=== PATIENT | female | born 1930 | race Asian ===

== ENCOUNTER 2016-11-21 16:52 | Inpatient (IN) | payer MEDICARE, MEDICAID ==
--- NOTE | 2016-11-21 17:01 | ED Physician Chart ---
Chief Complaint/HPI - Patient Information Date Seen:: 11/21/16 Time Seen:: 17:01 Chief Complaint:: cough History of Present Illness:: 86-year-old female history of COPD and dementia, brought in by EMS from [facility] facility with worsening, constant, nonproductive, cough 3 days. Has associated upper respiratory congestion. History limited as patient has underlying dementia History provided by EMS and EMS run sheet Allergies:: Allergies Allergy/AdvReac Type Severity Reaction Status Date / Time No Known Allergies Allergy Verified 07/30/16 21:04 Historian:: EMS Review:: Nurse's Note Reviewed, EMS run form Reviewed, Transfer documents Reviewed Review of Systems - Review of Systems Other: Complete system review otherwise unremarkable except as noted in HPI. Past Medical History - Past Medical History Past Medical History: HTN, Asthma/COPD, Dementia Family History: None Social History: Non Smoker, No Alcohol, No Drug Use, Care Facility Surgical History: Cholecystectomy Psychiatricy History: Dementia Medication: Reviewed Family Medical History - Family Member Mother History Unknown: Yes Father History Unknown: Yes Physical Exam - Physical Examination Other:: INITIAL VITAL SIGNS: Reviewed by me GENERAL: Alert and interactive. No acute distress HEAD: Head is normocephalic and atraumatic EYES: EOMI. . No scleral icterus. No conjunctival injection ENT: Moist mucous membranes. NECK: Supple. No masses. Full range of motion RESPIRATORY: No tachypnea. Prolonged expiratory phase bilaterally with slight wheezing on expiration. No rales or rhonchi. CV: Regular rate and rhythm. No murmurs, rubs, or gallops ABDOMEN: Soft, non-distended, non-tender. No guarding. No rebound. No masses. EXTREMITIES: No deformity. No cyanosis. No edema. SKIN: Warm and dry. No obvious rashes. NEUROLOGIC: Alert and oriented. Face is symmetric. Speech is normal. Moves all extremities equally. Motor and sensory distally intact. Labs/Radiology/EKG Results - Lab Results Results: Lab Results 11/21/16 11/21/16 11/21/16 Range/Units 17:22 17:22 17:22 WBC 8.3 (4.8-10.8) Th/cmm RBC 3.54 L (3.80-5.20) Mil/cmm Hgb 12.2 D (11.7-16.1) gm/dL Hct 34.2 L D (35.0-45.0) % MCV 96.8 (81-100) fl MCH 34.6 H (27.0-31.0) pg MCHC Differential 35.8 (28.0-36.0) pg RDW 12.9 (11.5-20.0) % Plt Count 245 (150-400) Th/cmm MPV 7.4 fl Neutrophils % 70.4 (40.0-80.0) % Lymphocytes % 16.1 L (20.0-50.0) % Monocytes % 12.5 H (2.0-10.0) % Eosinophils % 0.6 (0.0-5.0) % Basophils % 0.4 (0.0-2.0) % PT 9.2 L (9.5-11.5) SECONDS INR 0.93 (0.5-1.4) PTT (Actin FS) 26.1 (26.0-38.0) SECONDS Sodium 137 (136-145) mEq/L Potassium 3.9 (3.5-5.1) mEq/L Chloride 105 (98-107) mEq/L Carbon Dioxide 25.0 (21.0-31.0) mEq/L Anion Gap 10.9 (7.0-16.0) BUN 24 (7-25) mg/dL Creatinine 0.8 (0.6-1.2) mg/dL Est GFR ( Amer) TNP Est GFR (Non-Af Amer) TNP BUN/Creatinine Ratio 30.0 Glucose 104 (70-105) mg/dL Whole Bld Lactic Acid (0.60-2.00) mmol/L Calcium 9.1 (8.6-10.3) mg/dL Total Bilirubin 0.3 (0.3-1.0) mg/dL AST 20 (13-39) U/L ALT 16 (7-52) U/L Alkaline Phosphatase 98 (34-104) U/L Creatine Kinase 26 L (30-223) U/L Total Protein 7.7 (6.0-8.3) gm/dL Albumin 3.6 L (3.7-5.3) gm/dL Globulin 4.1 gm/dL Albumin/Globulin Ratio 0.9 L (1.0-1.8) 12/30/16 Range/Units 17:22 WBC (4.8-10.8) Th/cmm RBC (3.80-5.20) Mil/cmm Hgb (11.7-16.1) gm/dL Hct (35.0-45.0) % MCV (81-100) fl MCH (27.0-31.0) pg MCHC Differential (28.0-36.0) pg RDW (11.5-20.0) % Plt Count (150-400) Th/cmm MPV fl Neutrophils % (40.0-80.0) % Lymphocytes % (20.0-50.0) % Monocytes % (2.0-10.0) % Eosinophils % (0.0-5.0) % Basophils % (0.0-2.0) % PT (9.5-11.5) SECONDS INR (0.5-1.4) PTT (Actin FS) (26.0-38.0) SECONDS Sodium (136-145) mEq/L Potassium (3.5-5.1) mEq/L Chloride (98-107) mEq/L Carbon Dioxide (21.0-31.0) mEq/L Anion Gap (7.0-16.0) BUN (7-25) mg/dL Creatinine (0.6-1.2) mg/dL Est GFR ( Amer) Est GFR (Non-Af Amer) BUN/Creatinine Ratio Glucose (70-105) mg/dL Whole Bld Lactic Acid 0.88 (0.60-2.00) mmol/L Calcium (8.6-10.3) mg/dL Total Bilirubin (0.3-1.0) mg/dL AST (13-39) U/L ALT (7-52) U/L Alkaline Phosphatase (34-104) U/L Creatine Kinase (30-223) U/L Total Protein (6.0-8.3) gm/dL Albumin (3.7-5.3) gm/dL Globulin gm/dL Albumin/Globulin Ratio (1.0-1.8) - Radiology Results Results: Single AP VIEW Portable Chest X-ray was interpreted independently and contemporaneously by Lois Romero MD: No cardiomegaly Normal mediastinum No lung infiltrates No pneumothorax No soft tissue or bony abnormalities - EKG Interpretations Comments:: 12-lead EKG Interpretation by Lois Romero MD: Normal Sinus Rhythm with ventricular rate of 78 beats per minute Normal axis Normal intervals No acute ST or T wave changes. No obvious STEMI ED Septic Shock - . Is Septic Shock (SBP<90, OR Lactate>4 mmol\L) present?: No Reassessment (Disposition) - Reassessment Reassessment:: Patient appears to be having COPD exacerbation. Received IV Solu-Medrol and DuoNeb. Provided IV antibiotics. Spoke to Dr. Case who is covering for Dr. Sweet about the case. Given her advanced age and multiple comorbidities she will be admitted for further workup and treatment. Reassessment Condition:: Improved - Diagnosis Diagnosis:: COPD exacerbation Hypertension - Patient Disposition Discharge/Transfer:: Acute Care w/in this hosp Admitted to:: Med/Surg Admitting Medical Physician:: Marvin Case Time:: 19:40 Condition at Disposition:: Stable ED Discharge Plan - Patient Disposition Admit/Discharge/Transfer: Acute Care w/in this hosp
[2016-11-21] MEDS ORDERED: Albuterol/Ipratropium Neb 3 ML AERS HHN ONE ×2 (17:20→17:31)
[2016-11-21 17:41] LABS: % BASOPHILS 0.4 % (0.0-2.0); % EOSINOPHILS 0.6 % (0.0-5.0); % LYMPHOCYTES 16.1 % (20.0-50.0); % MONOCYTES 12.5 % (2.0-10.0); % NEUTROPHILS 70.4 % (40.0-80.0); MEAN CELL VOLUME 96.8 fl (81-100); MEAN CORPUSCULAR HEMOGLOBIN 34.6 pg (27.0-31.0); MEAN CORPUSCULAR HGB CONC 35.8 pg (28.0-36.0); MEAN PLATELET VOLUME 7.4 fl; PLATELET COUNT 245 Th/cmm (150-400); RED BLOOD COUNT 3.54 Mil/cmm (3.80-5.20); RED CELL DISTRIBUTION WIDTH 12.9 % (11.5-20.0); WHITE BLOOD COUNT 8.3 Th/cmm (4.8-10.8)
[2016-11-21 17:46] LABS: HEMATOCRIT 34.2 % (35.0-45.0); HEMOGLOBIN 12.2 gm/dL (11.7-16.1)
[2016-11-21 18:02] LABS: ALB/GLOB RATIO 0.9 (1.0-1.8); ALKALINE PHOSPHATASE 98 U/L (34-104); ANION GAP 10.9 (7.0-16.0); BILIRUBIN,TOTAL 0.3 mg/dL (0.3-1.0); BUN - UREA NITROGEN 24 mg/dL (7-25); CALCIUM SERUM 9.1 mg/dL (8.6-10.3); CHLORIDE 105 mEq/L (98-107); CREATININE - SERUM 0.8 mg/dL (0.6-1.2); GLUCOSE 104 mg/dL (70-105); POTASSIUM SERUM 3.9 mEq/L (3.5-5.1); SGOT 20 U/L (13-39); SGPT/ALT 16 U/L (7-52); SODIUM SERUM 137 mEq/L (136-145)
[2016-11-21 18:14] LABS: INR 0.93 (0.5-1.4); PROTHROMBIN TIME (TEST) 9.2 SECONDS (9.5-11.5)
[2016-11-21] MEDS ORDERED: cefTRIAXone 1 GM in Sodium Chloride 0.9% 50 ML IV ONE (19:16)
[2016-11-21] MEDS ORDERED: Piperacillin Sodium/Tazobact 3.375 gm Vial IV ONE (19:36)
[2016-11-21] MEDS ORDERED: Magnesium Hydroxide (MOM) 30 mL UDC PO PRN ×2 (19:58→21:08)
[2016-11-21] MEDS ORDERED: Morphine Sulfate 2 mg/mL 1mL Syr IVP PRN ×2 (19:58→21:08)
[2016-11-21] MEDS ORDERED: Hydrocodone/APAP 5mg/325mg Tab PO PRN ×2 (19:58→21:08)
[2016-11-21] MEDS ORDERED: Fleet Enema 135 mL RC PRN ×2 (19:58→21:08)
[2016-11-21] MEDS ORDERED: Non-Formulary Item 1 EA (Olopatadine Hcl [Pataday] 1 DROP) EACH EYE PRN ×2 (19:58→21:08)
[2016-11-21] MEDS ORDERED: Albuterol Nebulizer 2.5mg/3mL HHN PRN ×2 (19:58→21:08)
[2016-11-21] MEDS ORDERED: Albuterol Nebulizer 2.5mg/3mL HHN SCH (23:00)
[2016-11-22] MEDS: Guaifenesin DM 10 ML UDC PO PRN (01:04)
[2016-11-22] MEDS ORDERED: methylPREDNISolone SS 40 mg Vial IVP SCH (02:00)
[2016-11-22] MEDS: methylPREDNISolone SS 40 mg Vial IVP SCH ×4 (02:46→21:07)
[2016-11-22] MEDS: Albuterol Nebulizer 2.5mg/3mL HHN SCH ×5 (07:17→22:58)
--- NOTE | 2016-11-22 07:44 | History & Physical ---
Dictating on behalf of Dr. Sweet. CHIEF COMPLAINT: Cough. HISTORY OF PRESENT ILLNESS: The patient is an 86-year-old female with the history of COPD and dementia, brought in by EMS from [facility] for worsening, constant nonproductive cough for last 3 days. The patient also has some respiratory congestion. On initial evaluation, the patient was afebrile and WBC count was 8300. Chest x-ray showed no active disease. The patient was diagnosed to have COPD exacerbation. The patient was given Solu-Medrol and DuoNeb. The patient also has received 1 dose of IV antibiotic in the ER. PAST MEDICAL HISTORY: Include COPD and dementia, hypertension. SOCIAL HISTORY: The patient lives at care facility. No history of smoking, alcohol or drug use. PAST SURGICAL HISTORY: Cholecystectomy. PSYCHIATRIC HISTORY: Dementia. FAMILY HISTORY: Noncontributory. REVIEW OF SYSTEMS: CONSTITUTIONAL: The patient is poor historian. The patient has no fever, no chills. HEENT: The patient has no diplopia, no photophobia, no sore throat. RESPIRATORY: The patient has cough with mild congestion for last 3 days. CARDIOVASCULAR: No chest pain or palpitation. GASTROINTESTINAL: No nausea, no vomiting, no diarrhea, no constipation. GENITOURINARY: No dysuria. NEUROLOGIC: No headache, no dizziness. No focal weakness. PHYSICAL EXAMINATION: VITAL SIGNS: Shows temperature is 98.8 degrees Fahrenheit, pulse 75, respirations 20, blood pressure is 115/57. GENERAL: The patient is comfortable, lying in the bed, not in acute distress. HEENT: Head is normocephalic, atraumatic. Oral cavity moist, pink tongue. Eyes: Pallor is present, no icterus with PERRLA, EOMI. NECK: Supple. No JVD. No carotid bruit. Trachea in midline. CHEST: Vesicular breath sounds. Occasional crackles in the left with mild wheezing on the left side. HEART: S1, S2 within normal limits. Regular rhythm. No murmur, no gallop. ABDOMEN: Soft, nontender, nondistended. Bowel sounds present. The patient has colostomy and a colostomy site has some excoriation. EXTREMITIES: No cyanosis, no clubbing, no edema. NEUROLOGIC: Alert and awake, communicating well. LABORATORY DATA: Current labs shows WBC count is 8300, hemoglobin 12.2, hematocrit is 34.2, platelets are 245,000, neutrophils 71%. Sodium is 137, potassium 3.9, chloride 105, bicarbonate is 25, BUN is 24, creatinine 0.8, glucose is 204. Chest x-ray shows no active disease. IMPRESSION: 1. Chronic obstructive pulmonary disease exacerbation. 2. Dementia. 3. Excoriation around colostomy. PLAN: We will continue Solu-Medrol 60 mg IV q. 6 hourly and nebulizer treatment. Antibiotic-kamara, start the patient on Levaquin. Asked for the pulmonary consultation. JOB# [id number] MTDD
[2016-11-22] MEDS: Levofloxacin 500mg/100mL 500 MG/100 ML BAG IV SCH (07:52)
[2016-11-22] MEDS ORDERED: Levofloxacin 500mg/100mL 500 MG/100 ML BAG IV SCH (08:00)
[2016-11-22] MEDS ORDERED: Non-Formulary Item 1 EA (Omeprazole [Omeprazole] 20 MG) PO SCH (09:00)
[2016-11-22] MEDS ORDERED: ERGOCALCIFEROL PO SCH ×2 (09:00)
[2016-11-22] MEDS ORDERED: Pantoprazole 40 mg EC Tab PO SCH (09:00)
[2016-11-22] MEDS ORDERED: Vitamin D3 2,000 IU SGL PO SCH (09:00)
[2016-11-22] MEDS: Vitamin D3 2,000 IU SGL PO SCH (09:47)
--- NOTE | 2016-11-22 10:07 | Diagnostic Imaging Report ---
Portable chest x-ray HISTORY: Shortness of breath, sepsis Patient is markedly rotated. The heart appears enlarged. No definite acute focal pulmonary parenchymal processes. Arthritic changes noted about the shoulder regions. IMPRESSION: 1. Limited exam due to patient motion 2. No definite acute pulmonary processes 3. Cardiomegaly
[2016-11-22] MEDS ORDERED: D5-0.45NS 1,000 ML IV SCH (16:00)
[2016-11-22] MEDS ORDERED: Diphenoxylate/Atropine 2.5mg Tab PO PRN (16:32)
--- NOTE | 2016-11-22 16:35 | Infectious Disease Prog Note ---
Infectious Disease Subjective - Review of Systems Service Date: 11/22/16 Subjective: Feels better. Cough present. Mainly by eating food. Infectious Disease Objective - Results Result Diagrams: 11/21/16 17:22 11/21/16 17:22 Recent Labs: Laboratory Last Values WBC 8.3 Th/cmm (4.8-10.8) 11/21/16 17:22 RBC 3.54 Mil/cmm (3.80-5.20) L 11/21/16 17:22 Hgb 12.2 gm/dL (11.7-16.1) D 11/21/16 17:22 Hct 34.2 % (35.0-45.0) L D 11/21/16 17:22 MCV 96.8 fl (81-100) 11/21/16 17:22 MCH 34.6 pg (27.0-31.0) H 11/21/16 17:22 MCHC Differential 35.8 pg (28.0-36.0) 11/21/16 17:22 RDW 12.9 % (11.5-20.0) 11/21/16 17:22 Plt Count 245 Th/cmm (150-400) 11/21/16 17:22 MPV 7.4 fl 11/21/16 17:22 Neutrophils % 70.4 % (40.0-80.0) 11/21/16 17:22 Lymphocytes % 16.1 % (20.0-50.0) L 11/21/16 17:22 Monocytes % 12.5 % (2.0-10.0) H 11/21/16 17:22 Eosinophils % 0.6 % (0.0-5.0) 11/21/16 17:22 Basophils % 0.4 % (0.0-2.0) 11/21/16 17:22 PT 9.2 SECONDS (9.5-11.5) L 11/21/16 17:22 INR 0.93 (0.5-1.4) 11/21/16 17:22 PTT (Actin FS) 26.1 SECONDS (26.0-38.0) 11/21/16 17:22 Sodium 137 mEq/L (136-145) 11/21/16 17:22 Potassium 3.9 mEq/L (3.5-5.1) 11/21/16 17:22 Chloride 105 mEq/L (98-107) 11/21/16 17:22 Carbon Dioxide 25.0 mEq/L (21.0-31.0) 11/21/16 17:22 Anion Gap 10.9 (7.0-16.0) 11/21/16 17:22 BUN 24 mg/dL (7-25) 11/21/16 17:22 Creatinine 0.8 mg/dL (0.6-1.2) 11/21/16 17:22 Est GFR ( Amer) TNP 11/21/16 17:22 Est GFR (Non-Af Amer) TNP 11/21/16 17:22 BUN/Creatinine Ratio 30.0 11/21/16 17:22 Glucose 104 mg/dL (70-105) 11/21/16 17:22 Whole Bld Lactic Acid 0.88 mmol/L (0.60-2.00) 11/21/16 17:22 Calcium 9.1 mg/dL (8.6-10.3) 11/21/16 17:22 Total Bilirubin 0.3 mg/dL (0.3-1.0) 11/21/16 17:22 AST 20 U/L (13-39) 11/21/16 17:22 ALT 16 U/L (7-52) 11/21/16 17:22 Alkaline Phosphatase 98 U/L (34-104) 11/21/16 17:22 Creatine Kinase 26 U/L (30-223) L 11/21/16 17:22 Total Protein 7.7 gm/dL (6.0-8.3) 11/21/16 17:22 Albumin 3.6 gm/dL (3.7-5.3) L 11/21/16 17:22 Globulin 4.1 gm/dL 11/21/16 17:22 Albumin/Globulin Ratio 0.9 (1.0-1.8) L 11/21/16 17:22 - Physical Exam Vitals and I&O: Vital Signs Temp 97.3 F 11/22/16 16:00 Pulse 72 11/22/16 16:00 Resp 17 11/22/16 16:00 BP 98/47 11/22/16 16:00 Pulse Ox 93 11/22/16 16:00 Intake & Output 11/21/16 11/22/16 11/22/16 18:59 06:59 18:59 Intake Total 50 100 Balance 50 100 Intake: Intake, IV Amount 50 100 Levofloxacin 500mg/100mL 100 500 mg In 100 ml @ 100 mls/hr IV Q24HR [facility] Rx#: [id number] Piperacillin Sodium/ 50 Tazobact 3.375 gm In Sodium Chloride 0.9% 50 ml @ 100 mls/hr IV X1 ONE Rx#:[id number] Other: Stool Characteristics Brown Active Medications: Current Medications Acetaminophen (Tylenol) 650 mg PO Q4HR PRN PRN Reason: Pain or Fever >101 Stop: 01/20/17 19:57 Acetaminophen/Hydrocodone Bitart ([place] 5mg/325mg) 1 tab PO Q4HR PRN PRN Reason: Pain (Severe) Stop: 01/20/17 19:57 Albuterol Sulfate (Albuterol 2.5mg/3ml Neb Ud) 2.5 mg HHN Q4HRT [facility] Stop: 01/20/17 22:59 Last Admin: 11/22/16 15:20 Dose: 2.5 mg Albuterol Sulfate (Albuterol 2.5mg/3ml Neb Ud) 2.5 mg HHN Q4HR PRN PRN Reason: Shortness of Breath or Wheeze Stop: 01/20/17 19:57 Amlodipine Besylate (Norvasc) 5 mg PO DAILY [facility] Stop: 01/21/17 08:59 Last Admin: 11/22/16 09:46 Dose: 5 mg Clonidine HCl (Catapres) 0.1 mg PO Q6HR PRN PRN Reason: SBP > 160 or DBP > 100 Stop: 01/20/17 19:57 Docusate Sodium (Colace) 250 mg PO DAILY [facility] Stop: 01/21/17 08:59 Last Admin: 11/22/16 09:46 Dose: 250 mg Folic Acid (Folate) 1 mg PO DAILY [facility] Stop: 01/21/17 08:59 Last Admin: 11/22/16 09:47 Dose: 1 mg Guaifenesin/Dextromethorphan (Robitussin Dm) 10 ml PO Q6HR PRN PRN Reason: Cough Stop: 01/20/17 22:01 Last Admin: 11/22/16 01:04 Dose: 10 ml Levofloxacin (Levaquin Pb) 500 mg in 100 mls @ 100 mls/hr IV Q24HR [facility] Stop: 01/21/17 07:59 Last Infusion: 11/22/16 09:00 Dose: Infused Dextrose/Sodium Chloride (D5-0.45ns) 1,000 mls @ 50 mls/hr IV .Q20H [facility] Stop: 01/21/17 15:59 Magnesium Hydroxide (Milk Of Magnesia) 30 ml PO HS PRN PRN Reason: Constipation Stop: 01/20/17 19:57 Methylprednisolone Sodium Succinate (Solu-Medrol) 60 mg IVP Q6H [facility] Stop: 01/21/17 01:59 Last Admin: 11/22/16 07:57 Dose: 60 mg Miscellaneous (Olopatadine Hcl [Pataday]) 1 drop EACH EYE Q12HR PRN PRN Reason: Itching Montelukast Sodium (Singulair) 10 mg PO DAILY [facility] Stop: 01/21/17 08:59 Last Admin: 11/22/16 09:47 Dose: 10 mg Morphine Sulfate (Morphine) 2 mg IVP Q4HR PRN PRN Reason: Abdominal Pain Stop: 01/20/17 19:57 Ondansetron HCl (Zofran Odt) 4 mg PO Q6HR PRN PRN Reason: Nausea / Vomiting Stop: 01/20/17 19:57 Pantoprazole Sodium (Protonix) 40 mg IVP DAILY [facility] Stop: 01/21/17 08:59 Last Admin: 11/22/16 08:03 Dose: 40 mg Sodium Phosphate (Fleet Enema) 135 ml RC Q48HR PRN PRN Reason: Constipation Stop: 01/20/17 19:57 Valsartan (Diovan) 80 mg PO DAILY [facility] Stop: 01/21/17 08:59 Last Admin: 11/22/16 09:46 Dose: 80 mg Vitamin D (Vitamin D3) 2,000 iu PO DAILY [facility] Stop: 01/21/17 08:59 Last Admin: 11/22/16 09:47 Dose: 2,000 iu General: no acute distress, cachectic HEENT: atraumatic, normocephalic, PERRLA, EOMI, moist mucous membrane Neck: supple, no thyromegaly Cardiovascular: S1S2, regular Lungs: clear to percussion, wheeze (imptoving) Abdomen: soft, no tender, no distended Extremities: no cyanosis, no clubbing, no edema Neurological: awake, alert, oriented, CN 2-12 intact Skin: intact - Procedures Procedures: Procedures Procedure Code Date APPENDECTOMY ADD-ON 57613 07/30/16 BYPASS DESCENDING COLON TO CUTANEOUS, OPEN APPROACH [id number] 07/30/16 CORRECT RECTAL PROLAPSE 53006 07/30/16 CORRECT RECTAL PROLAPSE 14334 07/30/16 EXCISION OF SIGMOID COLON, OPEN APPROACH [id number] 07/30/16 PARTIAL REMOVAL OF COLON 83826 07/30/16 REPOSITION RECTUM, OPEN APPROACH [id number] 07/30/16 RESECTION OF APPENDIX, OPEN APPROACH [id number] 07/30/16 RESPIRATORY VENTILATION, LESS THAN 24 CONSECUTIVE HOURS [id number] 07/30/16 Infectious Disease Assmt/Plan - Assessment Assessment: 1. COPD exacerbation. 2. Dementia. 3. Excoriation around colostomy. - Plan Plan: Continue the same treatment. continue levaquin, solumedrol and breathing treatment. Apply calmoseptin Start D5NS.
[2016-11-22] MEDS ORDERED: D5-0.9%NS 1,000 ML IV SCH (16:45)
[2016-11-23] MEDS: Albuterol Nebulizer 2.5mg/3mL HHN SCH ×8 (02:49→22:50)
[2016-11-23] MEDS: methylPREDNISolone SS 40 mg Vial IVP SCH ×3 (04:37→21:36)
[2016-11-23] MEDS: Guaifenesin DM 10 ML UDC PO PRN (04:53)
[2016-11-23] MEDS: Levofloxacin 500mg/100mL 500 MG/100 ML BAG IV SCH (08:41)
[2016-11-23] MEDS: Menthol/Zinc Oxide Oint 113gm Tube TP SCH (08:42)
[2016-11-23] MEDS: Vitamin D3 2,000 IU SGL PO SCH (08:44)
--- NOTE | 2016-11-24 01:27 | Consultation ---
The patient is a patient of Dr. Marvin Case. Thank you very much for this consultation. HISTORY OF PRESENT ILLNESS: This is an 86-year-old female who was admitted with cough and congestion for a few days. The patient has history of dementia. ____ coughing more according to the nursing staff after eating and had poor appetite and poor oral intake. As mentioned, has history of COPD. I am not sure about that. No history of smoking in the past. REVIEW OF SYSTEMS: Unable to obtain because of the patient's condition. PHYSICAL EXAMINATION: GENERAL: The patient is awake, alert, coughing on and off. VITAL SIGNS: Temperature 98.0, pulse is 73, respirations 16, blood pressure 107/59, saturation 90%-95%. HEENT: Atraumatic and normocephalic. Pupils react to light and accommodation. Ear, nose and throat are normal. CHEST: There are scattered rhonchi bilaterally and wheezing. HEART: Regular rate and rhythm. ABDOMEN: Soft. EXTREMITIES: No edema. Chest x-ray, no acute infiltrate. WBC is 8.3, hemoglobin 12.2, sodium is 137, potassium 3.9, BUN is 24 and creatinine 0.8. IMPRESSION: This is an 86-year-old female with possibly aspiration causing the cough with acute bronchitis. No evidence of pneumonia at this time. PLAN: 1. IV antibiotics. 2. Given IV Solu-Medrol for now. 3. Swallow evaluation, keep n.p.o. after the swallow evaluation is done. Thank you very much. I will follow the patient with you. JOB# [id number]
[2016-11-24] MEDS: Guaifenesin DM 10 ML UDC PO PRN (01:40)
[2016-11-24] MEDS: Albuterol Nebulizer 2.5mg/3mL HHN SCH ×6 (03:03→22:25)
[2016-11-24] MEDS ORDERED: methylPREDNISolone SS 40 mg Vial ONE (05:31)
[2016-11-24] MEDS: methylPREDNISolone SS 40 mg Vial IVP SCH ×2 (05:38→21:47)
[2016-11-24] MEDS: Levofloxacin 500mg/100mL 500 MG/100 ML BAG IV SCH (08:30)
[2016-11-24] MEDS: Menthol/Zinc Oxide Oint 113gm Tube TP SCH ×2 (08:42→17:10)
[2016-11-24] MEDS: Vitamin D3 2,000 IU SGL PO SCH (08:43)
--- NOTE | 2016-11-24 09:41 | Diagnostic Imaging Report ---
CHEST X-RAY: AP view INDICATION: Shortness of breath COMPARISON: 11/21/2016 FINDINGS: Chronic lung changes are seen with no focal consolidation or pleural effusions. The patient is rotated. Mild cardiomegaly is noted with atherosclerosis. IMPRESSION: Chronic lung changes with no focal consolidation identified. Please correlate clinically for possible COPD. Cardiomegaly and atherosclerotic vascular disease.
--- NOTE | 2016-11-24 11:57 | Infectious Disease Prog Note ---
Infectious Disease Subjective - Review of Systems Service Date: 11/24/16 Subjective: Feels better. Cough present. Mainly by eating food. Infectious Disease Objective - Results Result Diagrams: 11/21/16 17:22 11/21/16 17:22 Recent Labs: Laboratory Last Values WBC 8.3 Th/cmm (4.8-10.8) 11/21/16 17:22 RBC 3.54 Mil/cmm (3.80-5.20) L 11/21/16 17:22 Hgb 12.2 gm/dL (11.7-16.1) D 11/21/16 17:22 Hct 34.2 % (35.0-45.0) L D 11/21/16 17:22 MCV 96.8 fl (81-100) 11/21/16 17:22 MCH 34.6 pg (27.0-31.0) H 11/21/16 17:22 MCHC Differential 35.8 pg (28.0-36.0) 11/21/16 17:22 RDW 12.9 % (11.5-20.0) 11/21/16 17:22 Plt Count 245 Th/cmm (150-400) 11/21/16 17:22 MPV 7.4 fl 11/21/16 17:22 Neutrophils % 70.4 % (40.0-80.0) 11/21/16 17:22 Lymphocytes % 16.1 % (20.0-50.0) L 11/21/16 17:22 Monocytes % 12.5 % (2.0-10.0) H 11/21/16 17:22 Eosinophils % 0.6 % (0.0-5.0) 11/21/16 17:22 Basophils % 0.4 % (0.0-2.0) 11/21/16 17:22 PT 9.2 SECONDS (9.5-11.5) L 11/21/16 17:22 INR 0.93 (0.5-1.4) 11/21/16 17:22 PTT (Actin FS) 26.1 SECONDS (26.0-38.0) 11/21/16 17:22 Sodium 137 mEq/L (136-145) 11/21/16 17:22 Potassium 3.9 mEq/L (3.5-5.1) 11/21/16 17:22 Chloride 105 mEq/L (98-107) 11/21/16 17:22 Carbon Dioxide 25.0 mEq/L (21.0-31.0) 11/21/16 17:22 Anion Gap 10.9 (7.0-16.0) 11/21/16 17:22 BUN 24 mg/dL (7-25) 11/21/16 17:22 Creatinine 0.8 mg/dL (0.6-1.2) 11/21/16 17:22 Est GFR ( Amer) TNP 11/21/16 17:22 Est GFR (Non-Af Amer) TNP 11/21/16 17:22 BUN/Creatinine Ratio 30.0 11/21/16 17:22 Glucose 104 mg/dL (70-105) 11/21/16 17:22 Whole Bld Lactic Acid 0.88 mmol/L (0.60-2.00) 11/21/16 17:22 Calcium 9.1 mg/dL (8.6-10.3) 11/21/16 17:22 Total Bilirubin 0.3 mg/dL (0.3-1.0) 11/21/16 17:22 AST 20 U/L (13-39) 11/21/16 17:22 ALT 16 U/L (7-52) 11/21/16 17:22 Alkaline Phosphatase 98 U/L (34-104) 11/21/16 17:22 Creatine Kinase 26 U/L (30-223) L 11/21/16 17:22 Total Protein 7.7 gm/dL (6.0-8.3) 11/21/16 17:22 Albumin 3.6 gm/dL (3.7-5.3) L 11/21/16 17:22 Globulin 4.1 gm/dL 11/21/16 17:22 Albumin/Globulin Ratio 0.9 (1.0-1.8) L 11/21/16 17:22 - Physical Exam Vitals and I&O: Vital Signs Temp 96.8 F 11/24/16 08:35 Pulse 76 11/24/16 11:37 Resp 16 11/24/16 11:37 BP 131/65 11/24/16 08:51 Pulse Ox 95 11/24/16 11:37 Intake & Output 11/23/16 11/24/16 11/24/16 18:59 06:59 18:59 Intake Total 200 100 Output Total 150 Balance 50 100 Intake: Intake, IV Amount 100 100 Levofloxacin 500mg/100mL 100 100 500 mg In 100 ml @ 100 mls/hr IV Q24HR [facility] Rx#: [id number] Oral 100 Output: Other 150 Other: # Voids 2 3 Active Medications: Current Medications Acetaminophen (Tylenol) 650 mg PO Q4HR PRN PRN Reason: Pain or Fever >101 Stop: 01/20/17 19:57 Acetaminophen/Hydrocodone Bitart ([place] 5mg/325mg) 1 tab PO Q4HR PRN PRN Reason: Pain (Severe) Stop: 01/20/17 19:57 Albuterol Sulfate (Albuterol 2.5mg/3ml Neb Ud) 2.5 mg HHN Q4HRT [facility] Stop: 01/20/17 22:59 Last Admin: 11/24/16 11:35 Dose: 2.5 mg Albuterol Sulfate (Albuterol 2.5mg/3ml Neb Ud) 2.5 mg HHN Q4HR PRN PRN Reason: Shortness of Breath or Wheeze Stop: 01/20/17 19:57 Amlodipine Besylate (Norvasc) 5 mg PO DAILY [facility] Stop: 01/21/17 08:59 Last Admin: 11/24/16 08:43 Dose: 5 mg Calamine/Phenol (Calmoseptine) 1 appl TP BID [facility] Stop: 01/21/17 16:59 Last Admin: 11/24/16 08:42 Dose: 1 appl Clonidine HCl (Catapres) 0.1 mg PO Q6HR PRN PRN Reason: SBP > 160 or DBP > 100 Stop: 01/20/17 19:57 Diphenoxylate HCl/Atropine (Lomotil) 1 tab PO Q4HR PRN PRN Reason: Diarrhea Stop: 01/21/17 16:31 Docusate Sodium (Colace) 250 mg PO DAILY [facility] Stop: 01/21/17 08:59 Last Admin: 11/24/16 08:43 Dose: 250 mg Folic Acid (Folate) 1 mg PO DAILY [facility] Stop: 01/21/17 08:59 Last Admin: 11/24/16 08:43 Dose: 1 mg Guaifenesin/Dextromethorphan (Robitussin Dm) 10 ml PO Q6HR PRN PRN Reason: Cough Stop: 01/20/17 22:01 Last Admin: 11/24/16 01:40 Dose: 10 ml Levofloxacin (Levaquin Pb) 500 mg in 100 mls @ 100 mls/hr IV Q24HR [facility] Stop: 01/21/17 07:59 Last Infusion: 11/24/16 09:46 Dose: Infused Dextrose/Sodium Chloride (D5-0.45ns) 1,000 mls @ 50 mls/hr IV .Q20H [facility] Stop: 01/21/17 15:59 Last Admin: 11/22/16 16:34 Dose: 50 mls/hr Lorazepam (Ativan) 1 mg IVP Q4HR PRN; Protocol PRN Reason: Agitation Stop: 01/21/17 16:31 Magnesium Hydroxide (Milk Of Magnesia) 30 ml PO HS PRN PRN Reason: Constipation Stop: 01/20/17 19:57 Methylprednisolone Sodium Succinate (Solu-Medrol) 40 mg IVP Q8HR [facility] Stop: 01/21/17 20:59 Last Admin: 11/24/16 05:38 Dose: 40 mg Miscellaneous (Olopatadine Hcl [Pataday]) 1 drop EACH EYE Q12HR PRN PRN Reason: Itching Montelukast Sodium (Singulair) 10 mg PO DAILY [facility] Stop: 01/21/17 08:59 Last Admin: 11/24/16 08:52 Dose: 10 mg Morphine Sulfate (Morphine) 2 mg IVP Q4HR PRN PRN Reason: Abdominal Pain Stop: 01/20/17 19:57 Mupirocin (Bactroban Oint) 1 appl NS BID [facility] Stop: 11/28/16 09:01 Last Admin: 11/24/16 08:42 Dose: 1 appl Ondansetron HCl (Zofran Odt) 4 mg PO Q6HR PRN PRN Reason: Nausea / Vomiting Stop: 01/20/17 19:57 Pantoprazole Sodium (Protonix) 40 mg IVP DAILY [facility] Stop: 01/21/17 08:59 Last Admin: 11/24/16 08:42 Dose: 40 mg Sodium Phosphate (Fleet Enema) 135 ml RC Q48HR PRN PRN Reason: Constipation Stop: 01/20/17 19:57 Valsartan (Diovan) 80 mg PO DAILY [facility] Stop: 01/21/17 08:59 Last Admin: 11/24/16 08:51 Dose: 80 mg Vitamin D (Vitamin D3) 2,000 iu PO DAILY [facility] Stop: 01/21/17 08:59 Last Admin: 11/24/16 08:43 Dose: 2,000 iu General: no acute distress, well developed, well nourished HEENT: atraumatic, normocephalic, PERRLA, EOMI Neck: supple, no thyromegaly Cardiovascular: S1S2, regular Lungs: clear to auscultation bilaterally, clear to percussion Abdomen: soft, tender Extremities: no cyanosis, no clubbing, no edema Neurological: awake, alert, oriented, CN 2-12 intact Skin: intact - Procedures Procedures: Procedures Procedure Code Date APPENDECTOMY ADD-ON 63128 07/30/16 BYPASS DESCENDING COLON TO CUTANEOUS, OPEN APPROACH [id number] 07/30/16 CORRECT RECTAL PROLAPSE 01148 07/30/16 CORRECT RECTAL PROLAPSE 61838 07/30/16 EXCISION OF SIGMOID COLON, OPEN APPROACH [id number] 07/30/16 PARTIAL REMOVAL OF COLON 89147 07/30/16 REPOSITION RECTUM, OPEN APPROACH [id number] 07/30/16 RESECTION OF APPENDIX, OPEN APPROACH [id number] 07/30/16 RESPIRATORY VENTILATION, LESS THAN 24 CONSECUTIVE HOURS [id number] 07/30/16 Infectious Disease Assmt/Plan - Assessment Assessment: 1. COPD exacerbation. 2. Dementia. 3. Excoriation around colostomy. 4. Dysphagia. 5. MRSA colonization. - Plan Plan: Continue the same treatment. continue levaquin, solumedrol and breathing treatment. Apply calmoseptin Continue D5NS.
--- NOTE | 2016-11-24 20:41 | Admit Criteria Form ---
Admit Criteria Forms - Admit Criteria Diagnosis: COPD Clinical Indications for Admission to Inpatient Care (Place 'X' for any and all applicable criteria): Admission is indicated for ANY ONE of the following (1)(2)(3): [X ]I. Acute exacerbation by high-risk comorbidity (e.g., pneumonia, dysrhythmia, heart failure, pleural effusion, pneumothorax) or severe underlying COPD (e.g., steroid dependent) [ ]II. Inpatient admission required rather than observation care (see Chronic Obstructive Pulmonary Disease: Observation Care) because of ANY ONE of the following: [ ]a) New or pre-existing signs or symptoms of COPD (eg, dyspnea or Tachypnea at rest or with minimal activity) that persist despite outpatient and observation care treatment [ ]b) New-onset hypoxemia (room air SaO2 less than 90%, PO2 less than 60 mm Hg (8.0 kPa)) that persists despite outpatient and observation care treatment [ ]c) Worsening of pre-existing hypoxemia (eg, new or increased requirement for supplemental oxygen to maintain oxygenation at baseline level) that persists despite outpatient and observation care treatment, with oxygen treatment needs performable only in acute inpatient setting [ ]d) Hypercarbia (PCO2 greater than 40 mm Hg (5.3 kPa))-induced respiratory acidosis (pH less than 7.35) that persists despite outpatient and observation care treatment [ ]e) Supplemental oxygen or respiratory treatments for over 24 hours that are performable only in acute inpatient setting [ ]f) Chest tube placement with active evacuation (e.g., suction, drainage) (5) [ ]g) Other condition, treatment or monitoring requiring inpatient admission [ ]III. Planned invasive surgical or diagnostic procedures requiring acute- care hospitalization [ ]IV. Acute respiratory failure (e.g., uncompensated hypercarbia, severe hypoxemia) [ ]V. Severe comorbid condition (e.g., severe steroid myopathy, acute vertebral fracture) that has acutely worsened pulmonary function [ ]. Confusion state, lethargy, obtundation, stupor or coma Extended stay beyond goal length of stay may be needed for (31)(32): [ ]a ) Respiratory Failure. [ ]b) Severe or persisting hypoxemia or hypercarbia [ ]c) Severe or persistent dyspnea [ ]d) Comorbidities (e.g. chronic heart failure, atrial fibrillation with rapid response, pneumonia) [ ]e) Malnutrition The original [facility] content created by [facility] has been revised. The portions of the content which have been revised are identified through the use of italic text or in bold, and [facility] has neither reviewed nor approved the modified material. All other unmodified content is copyright [facility]. Please see references footnoted in the original [facility] edition 2016 Admit Criteria Met?: Yes
[2016-11-25] MEDS: Albuterol Nebulizer 2.5mg/3mL HHN SCH ×6 (03:18→23:02)
[2016-11-25 08:18] LABS: URINE COLOR YELLOW
[2016-11-25 08:19] LABS: URINE BACTERIA NONE SEEN /hpf (NONE SEEN); URINE BILIRUBIN NEGATIVE (NEGATIVE); URINE BLOOD NEGATIVE (NEGATIVE); URINE EPITHELIAL CELLS RARE /lpf (FEW); URINE GLUCOSE (UA) NEGATIVE (NEGATIVE); URINE KETONE NEGATIVE (NEGATIVE); URINE PH 5.5; URINE PROTEIN NEGATIVE (NEGATIVE); URINE RBC NONE SEEN /hpf (0-5); URINE UROBILINOGEN 0.2 E.U./dL (0.2 - 1.0); URINE WBC 0-2 /hpf (0-5)
[2016-11-25] MEDS: Vitamin D3 2,000 IU SGL PO SCH (09:03)
[2016-11-25] MEDS: methylPREDNISolone SS 40 mg Vial IVP SCH ×2 (09:03→20:53)
[2016-11-25] MEDS: Menthol/Zinc Oxide Oint 113gm Tube TP SCH ×2 (09:05→17:03)
[2016-11-25] MEDS: Levofloxacin 500mg/100mL 500 MG/100 ML BAG IV SCH (09:06)
--- NOTE | 2016-11-25 16:32 | Diagnostic Imaging Report ---
Barium swallow HISTORY: Dysphagia The exam is very limited and an adequate due to difficulty in patient cooperation. There is normal initiation of swallowing. No obvious intraluminal abnormalities are seen in the cervical esophagus. Detail about the vallecula and perform sinuses limited due to the absence of sufficient contrast. No obvious abnormalities. Limited views of the thoracic esophagus demonstrate a large retrocardiac hiatal hernia with the gastric fundus above the diaphragm. Detailed assessment of the esophageal lumen and mucosal is precluded due to the small amount of contrast swallowed. IMPRESSION: 1. Very Limited/suboptimal inadequate exam due to insufficient contrast tolerated by the patient 2. Large left retrocardiac hiatal hernia with the gastric fundus above the diaphragm 3. No obvious aspiration
[2016-11-26] MEDS: Albuterol Nebulizer 2.5mg/3mL HHN SCH ×4 (02:01→15:28)
[2016-11-26 07:45] LABS: ALB/GLOB RATIO 0.9 (1.0-1.8); ALKALINE PHOSPHATASE 65 U/L (34-104); ANION GAP 9.2 (7.0-16.0); BILIRUBIN,TOTAL 0.3 mg/dL (0.3-1.0); BUN - UREA NITROGEN 14 mg/dL (7-25); BUN/CREATININE RATIO 23.3; CALCIUM SERUM 8.2 mg/dL (8.6-10.3); CARBON DIOXIDE 22.2 mEq/L (21.0-31.0); CHLORIDE 109 mEq/L (98-107); CREATININE - SERUM 0.6 mg/dL (0.6-1.2); GLUCOSE 134 mg/dL (70-105); POTASSIUM SERUM 3.4 mEq/L (3.5-5.1); SGOT 13 U/L (13-39); SGPT/ALT 14 U/L (7-52); SODIUM SERUM 137 mEq/L (136-145)
[2016-11-26] MEDS: Levofloxacin 500mg/100mL 500 MG/100 ML BAG IV SCH (08:46)
[2016-11-26] MEDS: Menthol/Zinc Oxide Oint 113gm Tube TP SCH (08:48)
[2016-11-26] MEDS: methylPREDNISolone SS 40 mg Vial IVP SCH (08:49)
[2016-11-26] MEDS: Vitamin D3 2,000 IU SGL PO SCH (08:50)
[2016-11-26 10:56] LABS: BE(B) 2.1 mmol/L (-3.0-3.0); HCO3 25.1 mmol/L (20.0-26.0); pH 7.49 (7.35-7.45)
[2016-11-26 10:57] LABS: ALLEN TEST pos; FIO2 21
--- NOTE | 2016-11-26 11:29 | Diagnostic Imaging Report ---
Portable chest x-ray HISTORY: Cough, aspiration The exam demonstrates residual contrast within the gastric fundus of a retrocardiac hiatal hernia related to the patient's earlier barium swallow. No acute pulmonary parenchymal processes are seen. Atherosclerotic calcification seen in the aorta. IMPRESSION: 1. Residual radiopaque contrast within the gastric fundus of a left retrocardiac hiatal hernia related to the patient's earlier barium swallow. 2. No acute pulmonary processes 3. Atherosclerotic vascular changes
--- NOTE | 2016-11-26 12:14 | Diagnostic Imaging Report ---
CHEST X-RAY: AP view INDICATION: Cough, congestion COMPARISON: Chest x-ray 1 3 7-cm barium swallow study 11/25/2016 FINDINGS: Hiatal hernia is seen containing oral contrast. Chronic changes are seen with no focal consolidation or pleural effusions. Cardiomegaly is noted with atherosclerosis. IMPRESSION: Chronic lung changes with no focal consolidation or radiographic evidence of CHF. Hiatal hernia containing oral contrast from previous examination Cardiomegaly and atherosclerotic vascular disease.
--- NOTE | 2016-11-26 12:24 | Infectious Disease Prog Note ---
Infectious Disease Subjective - Review of Systems Service Date: 11/26/16 Subjective: Feels better. Cough present. She has passed swallow eval. Infectious Disease Objective - Results Result Diagrams: 11/21/16 17:22 11/26/16 07:00 Recent Labs: Laboratory Last Values WBC 8.3 Th/cmm (4.8-10.8) 11/21/16 17:22 RBC 3.54 Mil/cmm (3.80-5.20) L 11/21/16 17:22 Hgb 12.2 gm/dL (11.7-16.1) D 11/21/16 17:22 Hct 34.2 % (35.0-45.0) L D 11/21/16 17:22 MCV 96.8 fl (81-100) 11/21/16 17:22 MCH 34.6 pg (27.0-31.0) H 11/21/16 17:22 MCHC Differential 35.8 pg (28.0-36.0) 11/21/16 17:22 RDW 12.9 % (11.5-20.0) 11/21/16 17:22 Plt Count 245 Th/cmm (150-400) 11/21/16 17:22 MPV 7.4 fl 11/21/16 17:22 Neutrophils % 70.4 % (40.0-80.0) 11/21/16 17:22 Lymphocytes % 16.1 % (20.0-50.0) L 11/21/16 17:22 Monocytes % 12.5 % (2.0-10.0) H 11/21/16 17:22 Eosinophils % 0.6 % (0.0-5.0) 11/21/16 17:22 Basophils % 0.4 % (0.0-2.0) 11/21/16 17:22 PT 9.2 SECONDS (9.5-11.5) L 11/21/16 17:22 INR 0.93 (0.5-1.4) 11/21/16 17:22 PTT (Actin FS) 26.1 SECONDS (26.0-38.0) 11/21/16 17:22 Specimen Source arterial 11/26/16 09:00 Sample Site rr 11/26/16 09:00 pH 7.49 (7.35-7.45) H 11/26/16 09:00 pCO2 33.0 mmHg (35.0-45.0) L 11/26/16 09:00 pO2 65.0 mmHg (80.0-100.0) L 11/26/16 09:00 HCO3 25.1 mmol/L (20.0-26.0) 11/26/16 09:00 Base Excess 2.1 mmol/L (-3.0-3.0) 11/26/16 09:00 O2 Saturation 94.0 % (92.0-100.0) 11/26/16 09:00 Rufino Test pos 11/26/16 09:00 Vent Rate na 11/26/16 09:00 Inspired O2 21 11/26/16 09:00 Tidal Volume na 11/26/16 09:00 PEEP na 11/26/16 09:00 Pressure (ins/psv/peep) na 11/26/16 09:00 Critical Value deb pitt director of search engine optimization 11/26/16 09:00 Sodium 137 mEq/L (136-145) 11/26/16 07:00 Potassium 3.4 mEq/L (3.5-5.1) L 11/26/16 07:00 Chloride 109 mEq/L (98-107) H 11/26/16 07:00 Carbon Dioxide 22.2 mEq/L (21.0-31.0) 11/26/16 07:00 Anion Gap 9.2 (7.0-16.0) 11/26/16 07:00 BUN 14 mg/dL (7-25) 11/26/16 07:00 Creatinine 0.6 mg/dL (0.6-1.2) 11/26/16 07:00 Est GFR ( Amer) TNP 11/26/16 07:00 Est GFR (Non-Af Amer) TNP 11/26/16 07:00 BUN/Creatinine Ratio 23.3 11/26/16 07:00 Glucose 134 mg/dL (70-105) H 11/26/16 07:00 Whole Bld Lactic Acid 0.88 mmol/L (0.60-2.00) 11/21/16 17:22 Calcium 8.2 mg/dL (8.6-10.3) L 11/26/16 07:00 Total Bilirubin 0.3 mg/dL (0.3-1.0) 11/26/16 07:00 AST 13 U/L (13-39) 11/26/16 07:00 ALT 14 U/L (7-52) 11/26/16 07:00 Alkaline Phosphatase 65 U/L (34-104) 11/26/16 07:00 Creatine Kinase 26 U/L (30-223) L 11/21/16 17:22 Total Protein 6.1 gm/dL (6.0-8.3) 11/26/16 07:00 Albumin 2.9 gm/dL (3.7-5.3) L 11/26/16 07:00 Globulin 3.2 gm/dL 11/26/16 07:00 Albumin/Globulin Ratio 0.9 (1.0-1.8) L 11/26/16 07:00 TSH 0.21 uIU/ml (0.34-5.60) L 11/26/16 07:00 Urine Source CLEAN C 11/25/16 07:30 Urine Color YELLOW 11/25/16 07:30 Urine Clarity SL. CLOUDY (CLEAR) 11/25/16 07:30 Urine pH 5.5 11/25/16 07:30 Ur Specific Benge 1.015 (1.005-1.030) 11/25/16 07:30 Urine Protein NEGATIVE mg/dL (NEGATIVE) 11/25/16 07:30 Urine Glucose (UA) NEGATIVE mg/dL (NEGATIVE) 11/25/16 07:30 Urine Ketones NEGATIVE mg/dL (NEGATIVE) 11/25/16 07:30 Urine Blood NEGATIVE (NEGATIVE) 11/25/16 07:30 Urine Nitrate NEGATIVE (NEGATIVE) 11/25/16 07:30 Urine Bilirubin NEGATIVE (NEGATIVE) 11/25/16 07:30 Urine Urobilinogen 0.2 E.U./dL (0.2 - 1.0) 11/25/16 07:30 Ur Leukocyte Esterase NEGATIVE (NEGATIVE) 11/25/16 07:30 Urine RBC NONE SEEN /hpf (0-5) 11/25/16 07:30 Urine WBC 0-2 /hpf (0-5) 11/25/16 07:30 Ur Epithelial Cells RARE /lpf (FEW) 11/25/16 07:30 Urine Bacteria NONE SEEN /hpf (NONE SEEN) 11/25/16 07:30 - Physical Exam Vitals and I&O: Vital Signs Temp 97.4 F 11/26/16 08:10 Pulse 67 11/26/16 12:07 Resp 20 11/26/16 12:07 BP 128/56 11/26/16 08:50 Pulse Ox 97 11/26/16 12:07 Intake & Output 11/25/16 11/26/16 11/26/16 18:59 06:59 18:59 Intake Total 500 Output Total 3 Balance 500 -3 Intake: Intake, IV Amount 100 Levofloxacin 500mg/100mL 100 500 mg In 100 ml @ 100 mls/hr IV Q24HR [facility] Rx#: [id number] Oral 400 Output: Urine 1 Stool 2 Other: # Voids 3 Active Medications: Current Medications Acetaminophen (Tylenol) 650 mg PO Q4HR PRN PRN Reason: Pain or Fever >101 Stop: 01/20/17 19:57 Acetaminophen/Hydrocodone Bitart ([place]ellington 5mg/325mg) 1 tab PO Q4HR PRN PRN Reason: Pain (Severe) Stop: 01/20/17 19:57 Albuterol Sulfate (Albuterol 2.5mg/3ml Neb Ud) 2.5 mg HHN Q4HRT [facility] Stop: 01/20/17 22:59 Last Admin: 11/26/16 12:03 Dose: 2.5 mg Albuterol Sulfate (Albuterol 2.5mg/3ml Neb Ud) 2.5 mg HHN Q4HR PRN PRN Reason: Shortness of Breath or Wheeze Stop: 01/20/17 19:57 Amlodipine Besylate (Norvasc) 5 mg PO DAILY [facility] Stop: 01/21/17 08:59 Last Admin: 11/26/16 08:50 Dose: 5 mg Calamine/Phenol (Calmoseptine) 1 appl TP BID [facility] Stop: 01/21/17 16:59 Last Admin: 11/26/16 08:48 Dose: 1 appl Clonidine HCl (Catapres) 0.1 mg PO Q6HR PRN PRN Reason: SBP > 160 or DBP > 100 Stop: 01/20/17 19:57 Diphenoxylate HCl/Atropine (Lomotil) 1 tab PO Q4HR PRN PRN Reason: Diarrhea Stop: 01/21/17 16:31 Docusate Sodium (Colace) 250 mg PO DAILY [facility] Stop: 01/21/17 08:59 Last Admin: 11/26/16 08:50 Dose: 250 mg Folic Acid (Folate) 1 mg PO DAILY [facility] Stop: 01/21/17 08:59 Last Admin: 11/26/16 08:50 Dose: 1 mg Guaifenesin/Dextromethorphan (Robitussin Dm) 10 ml PO Q6HR PRN PRN Reason: Cough Stop: 01/20/17 22:01 Last Admin: 11/24/16 01:40 Dose: 10 ml Levofloxacin (Levaquin Pb) 500 mg in 100 mls @ 100 mls/hr IV Q24HR [facility] Stop: 01/21/17 07:59 Last Admin: 11/26/16 08:46 Dose: 100 mls/hr Dextrose/Sodium Chloride (D5-0.45ns) 1,000 mls @ 50 mls/hr IV .Q20H [facility] Stop: 01/21/17 15:59 Last Admin: 11/22/16 16:34 Dose: 50 mls/hr Lorazepam (Ativan) 1 mg IVP Q4HR PRN; Protocol PRN Reason: Agitation Stop: 01/21/17 16:31 Magnesium Hydroxide (Milk Of Magnesia) 30 ml PO HS PRN PRN Reason: Constipation Stop: 01/20/17 19:57 Methylprednisolone Sodium Succinate (Solu-Medrol) 40 mg IVP Q12HR [facility] Stop: 01/23/17 20:59 Last Admin: 11/26/16 08:49 Dose: 40 mg Miscellaneous (Olopatadine Hcl [Pataday]) 1 drop EACH EYE Q12HR PRN PRN Reason: Itching Montelukast Sodium (Singulair) 10 mg PO DAILY [facility] Stop: 01/21/17 08:59 Last Admin: 11/26/16 08:50 Dose: 10 mg Morphine Sulfate (Morphine) 2 mg IVP Q4HR PRN PRN Reason: Abdominal Pain Stop: 01/20/17 19:57 Mupirocin (Bactroban Oint) 1 appl NS BID [facility] Stop: 11/28/16 09:01 Last Admin: 11/26/16 08:48 Dose: 1 appl Ondansetron HCl (Zofran Odt) 4 mg PO Q6HR PRN PRN Reason: Nausea / Vomiting Stop: 01/20/17 19:57 Pantoprazole Sodium (Protonix) 40 mg IVP DAILY SUSAN Stop: 01/21/17 08:59 Last Admin: 11/26/16 08:49 Dose: 40 mg Sodium Phosphate (Fleet Enema) 135 ml RC Q48HR PRN PRN Reason: Constipation Stop: 01/20/17 19:57 Valsartan (Diovan) 80 mg PO DAILY SUSAN Stop: 01/21/17 08:59 Last Admin: 11/26/16 08:50 Dose: 80 mg Vitamin D (Vitamin D3) 2,000 iu PO DAILY SUSAN Stop: 01/21/17 08:59 Last Admin: 11/26/16 08:50 Dose: 2,000 iu General: no acute distress, well developed, well nourished HEENT: atraumatic, normocephalic, PERRLA, EOMI, moist mucous membrane Neck: supple Cardiovascular: S1S2, regular Lungs: clear to auscultation bilaterally, clear to percussion Abdomen: soft, no tender, no distended Extremities: no cyanosis, no clubbing, no edema Neurological: awake, alert, oriented, CN 2-12 intact Skin: intact - Procedures Procedures: Procedures Procedure Code Date APPENDECTOMY ADD-ON 02974 07/30/16 BYPASS DESCENDING COLON TO CUTANEOUS, OPEN APPROACH [id number] 07/30/16 CORRECT RECTAL PROLAPSE 55369 07/30/16 CORRECT RECTAL PROLAPSE 50087 07/30/16 EXCISION OF SIGMOID COLON, OPEN APPROACH [id number] 07/30/16 PARTIAL REMOVAL OF COLON 34088 07/30/16 REPOSITION RECTUM, OPEN APPROACH [id number] 07/30/16 RESECTION OF APPENDIX, OPEN APPROACH [id number] 07/30/16 RESPIRATORY VENTILATION, LESS THAN 24 CONSECUTIVE HOURS [id number] 07/30/16 Infectious Disease Assmt/Plan - Assessment Assessment: 1. COPD exacerbation. 2. Dementia. 3. Excoriation around colostomy. 4. Dysphagia. 5. MRSA colonization. - Plan Plan: Continue the same treatment. continue levaquin, solumedrol and breathing treatment. Apply calmoseptin. DC plan.
[2016-11-26] MEDS: Guaifenesin DM 10 ML UDC PO PRN (13:05)
[2016-11-26] MEDS ORDERED: Potassium Chloride 20 mEq ER Tab PO ONE (13:14)
--- NOTE | 2016-11-27 16:52 | Progress Notes ---
PROBLEM LIST: 1. Possibly aspiration. 2. Tracheobronchitis. 3. Hiatal hernia. 4. 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 SYMPTOMS: Nil, feeling okay. The patient is awake. No specific new symptoms, nodding her head to questions, but otherwise no verbal communication and no respiratory distress, etc. PHYSICAL EXAMINATION: VITAL SIGNS: The patient's recorded vitals: Temperature is 96, heart rate is 83 and saturation is 96 on room air. ENT: Shows no new changes. CHEST: Shows diminished air entry with occasional rhonchi. HEART: Regular. ABDOMEN: Soft and nontender. Preliminary report by my view on swallow, there is a questionable aspiration, though this is contrast lying outside or in the lung is very hard to say and also looks like that she may have hernia as well. LABORATORY STUDIES: Not done. ASSESSMENT: 1. The patient is clinically stable ____ possibly aspiration. 2. Hiatal hernia. PLANS AND SUGGESTIONS: We will go ahead and continue current treatment. We will follow up another chest x-ray today and go ahead and get blood gasses, etc., and we will review official results of the barium swallow, etc., and go from there. JOB# [id number]
--- NOTE | 2016-12-15 23:24 | Discharge Summary ---
CHIEF COMPLAINT: The patient presented with cough and shortness of breath of 3-day duration. HISTORY OF PRESENT ILLNESS: The patient is an 86-year-old female with past medical history of COPD and dementia, brought to the ER for worsening and constant nonproductive cough for 3 days. It was associated with respiratory congestion. On initial evaluation, the patient was afebrile and WBC count was 8300. Chest x-ray showed no active disease. The patient was diagnosed to have COPD exacerbation. The patient was started on Solu-Medrol and Levaquin. The patient did well. Swallow evaluation was performed. Pulmonary consultation with Dr. Gallo was performed. The patient was stabilized and discharged back to [facility]. DISCHARGE CONDITION: Stable. MEDICATION: As per medication reconciliation sheet. DISCHARGE DIAGNOSES: 1. Chronic obstructive pulmonary disease exacerbation. 2. Dysphagia. 3. Methicillin-resistant Staphylococcus aureus colonization. 4. Dementia. JOB# [id number] MTDD
== END 2016-11-26 16:44 | DRG 177 ==
LOC: ER 16:52 → MSI 20:00 → ER 20:45
PROVIDERS: ADMIT Internal Medicine Infectious Disease; ATTEND Internal Medicine Infectious Disease
DX: J69.0 Pneumonitis due to inhalation of food and vomit (principal); E41 Nutritional marasmus; J44.0 Chronic obstructive pulmonary disease with (acute) lower respiratory infection; F03.90 Unspecified dementia, unspecified severity, without behavioral disturbance, psychotic disturbance, mood disturbance, and anxiety; J44.1 Chronic obstructive pulmonary disease with (acute) exacerbation; R13.10 Dysphagia, unspecified; S30.811A Abrasion of abdominal wall, initial encounter; I10 Essential (primary) hypertension; J20.9 Acute bronchitis, unspecified; K44.9 Diaphragmatic hernia without obstruction or gangrene; Z93.3 Colostomy status; Z90.49 Acquired absence of other specified parts of digestive tract; Z22.322 Carrier or suspected carrier of Methicillin resistant Staphylococcus aureus
CPT/HCPCS: 36415-UA; 36600-90; 71010-TC; 74220-TC; 80053-TC; 81001-TC; 82550-TC; 82803-TC; 83605; 84443-TC; 85025-TC; 85610-TC; 85730-TC; 93005; 94664; 94760; C9113; J1956; J2543; J2920; J2930; J7040; J7613; X3401; X4304; Z7610

== ENCOUNTER 2019-04-12 16:42 | Inpatient (IN) | payer MEDICARE, MEDICAID ==
--- NOTE | 2019-04-12 17:17 | ED Physician Chart ---
ED Chief Complaint/HPI - Patient Information Date Seen:: 04/12/19 Time Seen:: 16:50 Chief Complaint:: Hematochezia History of Present Illness:: onset x one day of hematochezia and melena; no report of trauma, H/As, neck pain , C/P, SOB, Abd. Pain, A/N/V/D/C, fever, chills, or urinary s/s Allergies:: Allergies Allergy/AdvReac Type Severity Reaction Status Date / Time No Known Allergies Allergy Verified 11/21/16 17:40 Vitals:: Vital Signs - 8 hr 04/12/19 16:49 Temp 97.9 F HR 67 RR 16 BP 134/77 O2 Sat % 99 Historian:: Patient, EMS Review:: Nurse's Note Reviewed, Old Chart Reviewed, EMS run form Reviewed ED Review of Systems - Review of Systems General/Constitutional: No fever, No chills, No weight loss, No weakness, No diaphoresis, No edema, No loss of appetite Skin: No skin lesions, No rash, No bruising Head: No headache, No light-headedness Eyes: No loss of vision, No pain, No diplopia ENT: No earache, No nasal drainage, No sore throat, No tinnitus Neck: No neck pain, No swelling, No thyromegaly, No stiffness, No mass noted Cardio Vascular: No chest pain, No palpitations, No PND, No orthopnea, No edema Pulmonary: No SOB, No cough, No sputum, No wheezing GI: Nausea, Vomiting, Diarrhea, Pain, Melena, Hematochezia, No constipation, Hematemesis G/U: No dysuria, No frequency, No hematuria, No nacturia Supervisor Drapery Hanging: No vaginal discharge, No abnormal vaginal bleed, No contraction Musculoskeletal: No bone or joint pain, No back pain, No muscle pain Endocrine: No polyuria, No polydipsia Psychiatric: No prior psych history, No depression, No anxiety, No suicidal ideation, No homicidal ideation, No auditory hallucination, No visual hallucination Hematopoietic: No bruising, No lymphadenopathy Allergic/Immuno: No urticaria, No angioedema Neurological: No syncope, No focal symptoms, No weakness, No paresthesia, No headache, No seizure, No dizziness, No confusion, No vertigo ED Past Medical History - Past Medical History Obtainable: Yes Past Medical History: HTN, Asthma/COPD, Dyslipidemia, PUD/GERD Family History: HTN Social History: Non Smoker, No Alcohol, No Drug Use, , Care Facility Surgical History: other (Colostomy) Psychiatricy History: None Medication: Reviewed Family Medical History - Family Member Mother History Unknown: Yes Ethnicity: Non- Father History Unknown: Yes Ethnicity: Non- ED Physical Exam - Physical Examination General/Constitutional: Awake, Well-developed, well-nourished, Alert, No distress, GCS 15, Non-toxic appearing, Ambulatory Head: Atraumatic Eyes: Lids, conjuctiva normal, PERRL, EOMI Skin: Nl inspection, No rash, No skin lesions, No ecchymosis, Well hydrated, No lymphadenopathy ENMT: External ears, nose nl, TM canals nl, Nasal exam nl, Lips, teeth, gums nl , Oropharynx nl, Tonsils nl Neck: Nontender, Full ROM w/o pain, No JVD, No nuchal rigidity, No bruit, No mass, No stridor Respiratory: Nl effort/Exclusion, Clear to Auscultation, No Wheeze/Rhonchi/Rales Cardio Vascular: RRR, No murmur, gallop, rubs, NL S1 S2, Carotid/Femoral/Distal pulses equal bilaterally GI: No tenderness/rebounding/guarding, No organomegaly, No hernia, Normal BS's, Nondistended, No mass/bruits, No McBurney tenderness Other GI comments:: no pulsatile masses; + Hematochezia and Melena : No CVA tenderness Extremities: No tenderness or effusion, Full ROM, normal strength in all extremities, No edema, Normal digits & nails Neuro/Psych: Alert/oriented, DTR's symmetric, Normal sensory exam, Normal motor strength, Judgement/insight normal, Mood normal, Normal gait, No focal deficits Misc: Normal back, No paraspinal tenderness ED Labs/Radiology/EKG Results - Lab Results Comments:: Reviewed - EKG Interpretations EKG Time:: 17:31 Rate & Rhythm: 79; NSR Comments:: non-specific st-t changes ED Septic Shock - . Is Septic Shock (SBP<90, OR Lactate>4 mmol\L) present?: No - <6hrs of presentation: Vital Signs: Vital Signs - 8 hr 05//19 16:49 Temp 97.9 F HR 67 RR 16 BP 134/77 O2 Sat % 99 ED Reassessment (Disposition) - Reassessment Reassessment Condition:: Improved - Diagnosis Diagnosis:: Hematochezia; Melena; GI Bleed; Hyperlipidemia; Hypokalemia - Aftercare/Follow up Instructions Aftercare/Follow-Up Instructions:: Counseled pt regarding lab results/diagnosis & need follow up, Counseled pt & family regarding lab results/diagnosis & need follow up - Patient Disposition Discharge/Transfer:: Acute Care w/in this hosp Accepting Physician:: Dr. Khadijah Case Time Called:: 1829 Time Responded:: 18:30 Admitted to:: Telemetry Spoke to:: Dr. Khadijah Case Admitting Medical Physician:: Dr. Khadijah Case Condition at Disposition:: Stable, Improved
[2019-04-12] MEDS ORDERED: Sodium Chloride 0.9% 1,000 ML IV ONE (17:26)
[2019-04-12 18:05] LABS: % EOSINOPHILS 2.5 % (0.0-5.0); % LYMPHOCYTES 32.9 % (20.0-50.0); % MONOCYTES 6.9 % (2.0-10.0); % NEUTROPHILS 57.7 % (40.0-80.0); EOSINOPHILE ABSOLUTE 0.2 Th/cmm (0.1-0.4); HEMOGLOBIN 12.3 gm/dL (12-16); INR 0.88 (0.5-1.4); LYMPHOCYTE ABSOLUTE 2.4 Th/cmm (1.5-3.0); MEAN CELL VOLUME 98.9 fl (81-100); MEAN CORPUSCULAR HEMOGLOBIN 32.9 pg (27.0-31.0); MEAN CORPUSCULAR HGB CONC 33.3 pg (28.0-36.0); MONOCYTE ABSOLUTE 0.5 Th/cmm (0.3-1.0); NEUTROPHILE ABSOLUTE 4.1 Th/cmm (1.8-8.0); PLATELET COUNT 292 Th/cmm (150-400); RED BLOOD COUNT 3.75 Mil/cmm (3.80-5.20); RED CELL DISTRIBUTION WIDTH 11.8 % (11.5-20.0); WHITE BLOOD COUNT 7.2 Th/cmm (4.8-10.8)
[2019-04-12 18:11] LABS: AMYLASE SERUM 54 U/L (29-103); ANION GAP 13.3 (7.0-16.0); BUN - UREA NITROGEN 19 mg/dL (7-25); CALCIUM SERUM 9.3 mg/dL (8.6-10.3); CARBON DIOXIDE 22.1 mEq/L (21.0-31.0); CHLORIDE 105 mEq/L (98-107); CHOLESTEROL 180 mg/dL (<200); CREATININE - SERUM 0.9 mg/dL (0.6-1.2); CREATININE KINASE 27 U/L (30-223); GLUCOSE 120 mg/dL (70-105); HDL -HIGH DENSITY LIPOPROTEIN 34 mg/dL (23-92); LIPASE 59 U/L (11-82); POTASSIUM SERUM 3.4 mEq/L (3.5-5.1); SODIUM SERUM 137 mEq/L (136-145); TRIGLYCERIDES 302 mg/dL (<150)
[2019-04-12] MEDS ORDERED: Potassium Chloride 20 mEq ER Tab PO ONE ×2 (18:46→19:01)
[2019-04-12 21:53] LABS: URINE SOURCE CLEAN C
[2019-04-12 21:55] LABS: URINE BILIRUBIN NEGATIVE (NEGATIVE); URINE BLOOD LARGE (NEGATIVE); URINE GLUCOSE (UA) NEGATIVE (NEGATIVE); URINE KETONE NEGATIVE (NEGATIVE); URINE LEUKOCYTE ESTERASE NEGATIVE (NEGATIVE); URINE MICROSCOPIC INDICATED? YES; URINE NITRATE NEGATIVE (NEGATIVE); URINE PROTEIN NEGATIVE (NEGATIVE); URINE UROBILINOGEN 0.2 E.U./dL (0.2 - 1.0)
[2019-04-12 21:58] LABS: URINE CLARITY CLEAR (CLEAR); URINE COLOR YELLOW
[2019-04-12 22:00] LABS: URINE BACTERIA FEW /hpf (NONE SEEN); URINE EPITHELIAL CELLS FEW /lpf (FEW)
[2019-04-13] MEDS ORDERED: Magnesium Hydroxide (MOM) 30 mL UDC PO PRN ×2 (00:45→19:18)
[2019-04-13] MEDS ORDERED: Guaifenesin DM 10 ML UDC PO PRN ×2 (00:46→19:18)
[2019-04-13 01:06] LABS: HEMATOCRIT 36.7 % (41.0-60)
[2019-04-13] MEDS: Albuterol/Ipratropium Neb 3 ML AERS HHN SCH ×4 (01:24→18:30)
[2019-04-13 07:29] LABS: HEMATOCRIT 36.5 % (41.0-60); HEMOGLOBIN 12.4 gm/dL (12-16)
--- NOTE | 2019-04-13 08:48 | Consultation ---
DATE OF CONSULTATION: 04/13/2019 GASTROENTEROLOGY CONSULTATION REQUESTING PHYSICIAN: Marvin Case MD REASON FOR CONSULTATION: Possible rectal bleeding. HISTORY OF PRESENT ILLNESS: An 88-year-old female with possible mild dementia, rectal prolapse requiring diverting colostomy and subtotal colectomy and Lynette pouch creation, COPD and hypertension. She lives in an extended care facility. She was brought in to the ER for possible rectal bleeding versus vaginal bleeding. There was no blood per colostomy. She is a poor historian. Here, there has been no overt bleeding in the ICU. She is tolerating pureed diet without nausea, vomiting or hematemesis. It is unclear whether she has had a recent endoscopy or colonoscopy via stoma. PAST SURGICAL HISTORY: Cholecystectomy. FAMILY HISTORY: Noncontributory. REVIEW OF SYSTEMS: A comprehensive 12-point review of systems conducted and is only positive for those signs and symptoms present in history of present illness. MEDICATIONS: Here are DuoNeb nebulizer, vitamin D3, Colace, iron, folic acid, Cozaar, Singulair. ALLERGIES: No known drug allergies. PHYSICAL EXAMINATION: VITAL SIGNS: Temperature of 98.1, blood pressure is 138/51, pulse of 79, respirations 18, O2 sats 98%. GENERAL: The patient is well-developed elderly female who is in no acute distress. She is awake. HEENT: Sclerae nonicteric. Oropharynx is clear. CARDIOVASCULAR: Regular rate and rhythm. LUNGS: Clear to auscultation bilaterally. ABDOMEN: Soft, nontender, nondistended, normoactive bowel sounds. Intact colostomy in left lower quadrant with brown stool output. RECTAL: Reveals normal sphincter tone, small rectal vault. No palpable masses, no blood on the glove. No external hemorrhoids identified. EXTREMITIES: No edema. LABORATORY DATA AND IMAGING: WBC 7.2, hemoglobin 12.3, platelet count 292. INR is 0.88. Creatinine is 0.9. Urinalysis shows large amount of blood and rbc's. IMPRESSION: 1. Rectal bleeding versus vaginal bleeding. At this point, there is no overt rectal bleeding. There may have been vaginal bleeding. There may also have been hematuria given a large amount of blood in the urinalysis. If there was rectal bleeding, it may have been from diversion colitis or proctitis versus less likely other etiology. 2. Hematuria, cause to be determined. 3. 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 4. History of chronic obstructive pulmonary disease. 5. History of dementia. 6. History of cholecystectomy. RECOMMENDATIONS: 1. Conservative non-endoscopic management of rectal bleeding at this point. 2. Check stool OB. 3. Monitor hemoglobin. 4. Oral diet as per Speech Therapy. 5. Hematuria and vaginal bleeding care as per hospitalist, Dr. Marvin Case. Thank you, Dr. Marvin Case, for involving us in the care of your patient. If you have any further questions, please call us. [facility]# [id number]
[2019-04-13] MEDS ORDERED: Multivitamin w/ Minerals Tab PO SCH (09:00)
[2019-04-13] MEDS ORDERED: Ferrous Sulfate 325 MG TAB PO SCH (09:00)
--- NOTE | 2019-04-13 10:33 | History and Physical ---
History of Present Illness - HPI Chief Complaint: 88 female patient was brought into ER due to x 1 day of Hematochezia and melena. HPI: 88 female patient was admitted to [facility] due to x 1 day of Hematochezia and Melena. Patient has history of Hypertension, Dementia, Asthma, COPD, Dyslipidemia, PUD and GERD. Patient had an ER assessment and a complete workup was done. Patient was diagnosed with Hematochezia, Melena, GI Bleed, Hyperlipidemia and Hypokalemia. Patient will have an ID consult and a GI consult. I will follow, treat and monitor patient. Patient will continue current treatment plan as ordered. 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: Dementia GI: Report: GERD, GI Bleed, Peptic Ulcer Psych: Report: Other (Hx of Dementia.) Musculoskeletal: Report: No Pertinent Hx Rheumatologic: Report: No pertinent Hx Infectious Disease: Report: Other (see chart.) Renal/: Report: No Pertinent Hx Endocrine: Report: No Pertinent Hx Dermatology: Report: No Pertinent Hx - Past Surgical History Past Surgical History: Cholecystectomy Family Medical History - Family Member Mother History Unknown: Yes Ethnicity: Non- Father History Unknown: Yes Ethnicity: Non- Social History Smoke: No Alcohol: None Drugs: None Lives: Assisted Domestic Violence: Negative Health Maintenance Health Maintenance: Other (see chart.) - Medications Home Medications: Home Medication Medication Instructions Recorded Type Cholecalciferol (Vitamin D3) 5,000 unit PO DAILY 04/12/19 History [Vitamin D3] Clonidine HCl [Catapres] 0.1 mg PO Q6H PRN 04/12/19 History Docusate Sodium [Colace] 200 mg PO DAILY 04/12/19 History Ferrous Sulfate 325 mg PO DAILY 04/12/19 History Folic Acid [Folate*] 1 mg PO DAILY 04/12/19 History Glycopyrrolate/Formoterol Fum 2 puff IH BID 04/12/19 History [Bevespi Aerosphere Inhaler] Guaifenesin DM [Robitussin DM] 10 ml PO Q6HR PRN 04/12/19 History Losartan Potassium 50 mg PO DAILY 04/12/19 History Magnesium Hydroxide [Milk of 30 ml PO HS PRN 04/12/19 History Magnesia] Multivitamin-Min/Iron/FA/Vit K 1 tab PO DAILY 04/12/19 History [Multi-Day Plus Minerals] Other Medications: Please see Medication reconciliation sheet. - Allergies Allergies/Adverse Reactions: Allergies Allergy/AdvReac Type Severity Reaction Status Date / Time No Known Allergies Allergy Verified 11/21/16 17:40 Review of Systems - Review of Systems Review of Systems: 88 female patient c/o rectal bleeding. Constitutional: Report: Weakness Eyes: Report: No Significant ENT: Report: No Significant Respiratory: Report: No Significant Cardiovascular: Report: No Significant Gastrointestinal: Report: Melena, Hematochezia Genitourinary: Report: No Significant Musculoskeletal: Report: No Significant Skin: Report: No Significant Neurological: Report: Confusion Physical Exam - Physical Exam HEENT: Report: Ears Nose Throat within normal limits Neck: Report: Within normal limits Cardiovascular Systems: Report: +s1/s2 noted Respiratory: Report: Breath Sounds are within normal limits Abdomen: Report: Non-tender to palpation Back: Report: Inspection of back is within normal limits. Extremities: Report: Non-tender to palpation. Skin: Report: Color of skin is within normal limits Neuro/Psych: Report: Other (Mild confusion.) - Lab Results All Lab Results last 24 hours: Laboratory Results - last 24 hr 04/12/19 04/12/19 04/12/19 17:45 17:45 17:45 WBC 7.2 RBC 3.75 L Hgb 12.3 Hct 37.0 L MCV 98.9 MCH 32.9 H MCHC Differential 33.3 RDW 11.8 Plt Count 292 MPV 7.1 Neutrophils % 57.7 Lymphocytes % 32.9 Monocytes % 6.9 Eosinophils % 2.5 Basophils % 0.0 PT 9.3 L INR 0.88 Sodium 137 Potassium 3.4 L Chloride 105 Carbon Dioxide 22.1 Anion Gap 13.3 BUN 19 Creatinine 0.9 Est GFR ( Amer) TNP Est GFR (Non-Af Amer) TNP BUN/Creatinine Ratio 21.1 Glucose 120 H Calcium 9.3 Creatine Kinase 27 L Troponin I B-Natriuretic Peptide Triglycerides 302 H Cholesterol 180 LDL Cholesterol Direct 93 HDL Cholesterol 34 Amylase 54 Lipase 59 Urine Source Urine Color Urine Clarity Urine pH Ur Specific Leon Urine Protein Urine Glucose (UA) Urine Ketones Urine Blood Urine Nitrate Urine Bilirubin Urine Urobilinogen Ur Leukocyte Esterase Urine RBC Urine WBC Ur Epithelial Cells Urine Bacteria 04/12/19 04/12/19 04/12/19 17:45 17:45 20:50 WBC RBC Hgb Hct MCV MCH MCHC Differential RDW Plt Count MPV Neutrophils % Lymphocytes % Monocytes % Eosinophils % Basophils % PT INR Sodium Potassium Chloride Carbon Dioxide Anion Gap BUN Creatinine Est GFR ( Amer) Est GFR (Non-Af Amer) BUN/Creatinine Ratio Glucose Calcium Creatine Kinase Troponin I < 0.01 L B-Natriuretic Peptide 27.9 Triglycerides Cholesterol LDL Cholesterol Direct HDL Cholesterol Amylase Lipase Urine Source CLEAN C Urine Color YELLOW Urine Clarity CLEAR Urine pH 5.0 Ur Specific Leon 1.020 Urine Protein NEGATIVE Urine Glucose (UA) NEGATIVE Urine Ketones NEGATIVE Urine Blood LARGE H Urine Nitrate NEGATIVE Urine Bilirubin NEGATIVE Urine Urobilinogen 0.2 Ur Leukocyte Esterase NEGATIVE Urine RBC 5-10 H Urine WBC 2-5 Ur Epithelial Cells FEW Urine Bacteria FEW 04/13/19 04/13/19 01:00 07:20 WBC RBC Hgb 12.0 12.4 Hct 36.7 L 36.5 L MCV MCH MCHC Differential RDW Plt Count MPV Neutrophils % Lymphocytes % Monocytes % Eosinophils % Basophils % PT INR Sodium Potassium Chloride Carbon Dioxide Anion Gap BUN Creatinine Est GFR ( Amer) Est GFR (Non-Af Amer) BUN/Creatinine Ratio Glucose Calcium Creatine Kinase Troponin I B-Natriuretic Peptide Triglycerides Cholesterol LDL Cholesterol Direct HDL Cholesterol Amylase Lipase Urine Source Urine Color Urine Clarity Urine pH Ur Specific Leon Urine Protein Urine Glucose (UA) Urine Ketones Urine Blood Urine Nitrate Urine Bilirubin Urine Urobilinogen Ur Leukocyte Esterase Urine RBC Urine WBC Ur Epithelial Cells Urine Bacteria - Assessment Assessment: Hypertension. Dementia. Asthma. COPD. Dyslipidemia. PUD. GERD. Hematochezia. Melena. GI Bleed. Hyperlipidemia. Hypokalemia. - Plan Plan: Continuation of care. ID consult and GI consult requested. Monitor Vitals and Labs. Continue present meds as directed. Monitor Diet/Nutritional support. Monitor mental status progression. Monitor behavioral health status. Pain Management. Safety precaution. Supportive care. Fall precaution, frequent nursing rounds, and as needed restraints to prevent fall. Continue collaborating with consulting specialists, case management and nursing team. Will Monitor patient and continue current treatment plan as ordered.
[2019-04-13 13:09] LABS: HEMATOCRIT 39.6 % (41.0-60); HEMOGLOBIN 13.1 gm/dL (12-16)
[2019-04-13] MEDS ORDERED: Diltiazem 5 mg/mL 5mL Vial IVP ONE (14:42)
[2019-04-13] MEDS ORDERED: Diltiazem 5 mg/mL 5mL Vial IVP STA (17:29)
[2019-04-13 19:21] LABS: HEMATOCRIT 40.6 % (41.0-60); HEMOGLOBIN 13.5 gm/dL (12-16)
--- NOTE | 2019-04-14 01:44 | Consultation ---
DATE OF CONSULTATION: 04/12/[address] Marvin Case. DATE OF SERVICE: 04/12/2019 HISTORY OF PRESENT ILLNESS: This is an 88-year-old female patient who had upper GI bleed. Following this, the patient was sent to the Emergency Room and the patient is admitted at the present time. The patient's heart rate is 150 and hence cardiac consult is requested. PAST MEDICAL HISTORY: Duodenal ulcer, GERD, dementia, hypertension, asthma, osteoporosis, COPD, hyperlipidemia. FAMILY HISTORY: Unremarkable. SOCIAL HISTORY: No history of smoking, alcohol abuse. ALLERGIES: None. PHYSICAL EXAMINATION: VITAL SIGNS: Blood pressure 100/70, pulse 150, respirations 28. HEAD: Normocephalic. No lumps or bumps. EYES: Pupils equal, reactive to light. Fundi show AV nicking, sclerae white, conjunctivae pink. NECK: Carotid 2+. Normal upstroke. JVD flat. Thyroid not palpable. Lymph nodes not palpable. CHEST: Shows increased AP diameter. No kyphosis or scoliosis. LUNGS: Bilateral bronchovesicular breath sounds. Occasional wheeze. No rales. HEART: PMI fifth intercostal space with [id number] line. S1, S2. No S3, S4, sinus tachycardia. ABDOMEN: Soft. Liver, spleen not palpable. No organomegaly. Bowel sounds active. NEUROLOGIC: Unremarkable. The patient is confused. EXTREMITIES: Peripheral pulses 2+. No pedal edema. CLINICAL IMPRESSION: Supraventricular tachycardia, upper gastrointestinal bleed, hypertension, dementia, asthma, chronic obstructive pulmonary disease, hyperlipidemia, gastroesophageal reflux disease, osteoporosis. PLAN: Admit the patient. We will give IV Cardizem followed by Cardizem drip to control the heart rate. She had GI evaluation for the bleeding. We will also get an echocardiogram. JOB# [id number]
[2019-04-14] MEDS: Albuterol/Ipratropium Neb 3 ML AERS HHN SCH ×4 (01:47→19:03)
[2019-04-14 06:34] LABS: % BASOPHILS 0.2 % (0.0-2.0); % EOSINOPHILS 0.6 % (0.0-5.0); % LYMPHOCYTES 17.1 % (20.0-50.0); % MONOCYTES 8.7 % (2.0-10.0); % NEUTROPHILS 73.4 % (40.0-80.0); EOSINOPHILE ABSOLUTE 0.1 Th/cmm (0.1-0.4); HEMATOCRIT 37.1 % (41.0-60); HEMOGLOBIN 12.7 gm/dL (12-16); LYMPHOCYTE ABSOLUTE 2.1 Th/cmm (1.5-3.0); MEAN CORPUSCULAR HGB CONC 34.3 pg (28.0-36.0); MONOCYTE ABSOLUTE 1.1 Th/cmm (0.3-1.0); NEUTROPHILE ABSOLUTE 9.2 Th/cmm (1.8-8.0); PLATELET COUNT 258 Th/cmm (150-400); RED BLOOD COUNT 3.75 Mil/cmm (3.80-5.20); RED CELL DISTRIBUTION WIDTH 12.2 % (11.5-20.0); WHITE BLOOD COUNT 12.5 Th/cmm (4.8-10.8)
[2019-04-14 07:08] LABS: ALB/GLOB RATIO 1.3 (1.0-1.8); ALBUMIN 3.6 gm/dL (3.7-5.3); ALKALINE PHOSPHATASE 73 U/L (34-104); ANION GAP 11.5 (7.0-16.0); BILIRUBIN,TOTAL 0.5 mg/dL (0.3-1.0); BUN - UREA NITROGEN 15 mg/dL (7-25); CALCIUM SERUM 9.1 mg/dL (8.6-10.3); CHLORIDE 104 mEq/L (98-107); CREATININE - SERUM 0.9 mg/dL (0.6-1.2); GLUCOSE 130 mg/dL (70-105); POTASSIUM SERUM 3.5 mEq/L (3.5-5.1); SGOT 35 U/L (13-39); SGPT/ALT 17 U/L (7-52); SODIUM SERUM 136 mEq/L (136-145); TOTAL PROTEIN,SERUM 6.4 gm/dL (6.0-8.3)
--- NOTE | 2019-04-14 08:22 | Consultation ---
DATE OF CONSULTATION: 04/14/2019 PATIENT'S AGE: 88. SEX: Female. PHYSICIAN: Dr. Sweet. TIMBER APPRAISER: Dr. Temple. TYPE OF THE REPORT: Psychiatric consult. REASON FOR THE CONSULT: Agitation. HISTORY OF PRESENT ILLNESS: The patient is an 88-year-old female who was admitted to the hospital because of melena. The patient has been agitated and in irritable mood. The patient also has been confused and uncooperative with the staff. She also has been restless and difficulty with mood swings. The patient also has not been able to follow staff directions even when family is around. The patient is taking Ativan on a p.r.n. basis, which put her to sleep. Otherwise, no other medications at this time. Also, when the patient is alert after she takes the Ativan and after she wakes up, she is agitated and also confused and fighting restraints. PAST PSYCHIATRIC HISTORY: The patient has history of dementia. PAST MEDICAL HISTORY: As per Dr. Sweet. SOCIAL HISTORY: The patient lives in a shelter. No known alcohol or drug use. MENTAL STATUS EXAM: The patient appears her stated age. Restless. Irritable mood. Does not speak Estonian, does speak Marshallese, but the patient still unable to answer any of the questions. The patient is alert, but seems to be disoriented to time, place, person, and situation. Poor insight and judgment. ASSESSMENT: PRIMARY DIAGNOSIS: Unspecified psychosis. SECONDARY DIAGNOSIS: Dementia, moderate to severe, with psychotic features. TREATMENT PLAN: We will start the patient on Seroquel 12.5 mg twice a day and we will hold if sedated. Also, we will follow up and monitor her behavior. Thanks Dr. Sweet and we will follow with you. JOB# [id number]
[2019-04-14] MEDS ORDERED: Non-Formulary Item 1 EA (Multivitamin-Min/Iron/Fa/Vit K [Multi-Day Plus Minerals Tablet] 1 PO SCH (09:00)
[2019-04-14] MEDS ORDERED: GLYCOPYRROLATE IH SCH (09:00)
[2019-04-14] MEDS ORDERED: FORMOTEROL FUM IH SCH (09:00)
[2019-04-14] MEDS ORDERED: Non-Formulary Item 1 EA (Cholecalciferol (Vitamin D3) [Vitamin D3] 5,000 UNIT) PO SCH (09:00)
[2019-04-14] MEDS ORDERED: [UNRECOGNIZED DRUG - OTHER] IH SCH (09:00)
--- NOTE | 2019-04-14 11:26 | General Progress Note ---
Subjective - Review of Systems Service Date: 04/14/19 Subjective: Patient's heart rate is improved on Cardizem drip and to have echocardiogram today Objective - Results Result Diagrams: 04/14/19 04:30 04/14/19 04:30 Recent Labs: Laboratory Last Values WBC 12.5 Th/cmm (4.8-10.8) H 04/14/19 04:30 RBC 3.75 Mil/cmm (3.80-5.20) L 04/14/19 04:30 Hgb 12.7 gm/dL (12-16) 04/14/19 04:30 Hct 37.1 % (41.0-60) L 04/14/19 04:30 MCV 99.0 fl (81-100) 04/14/19 04:30 MCH 34.0 pg (27.0-31.0) H 04/14/19 04:30 MCHC Differential 34.3 pg (28.0-36.0) 04/14/19 04:30 RDW 12.2 % (11.5-20.0) 04/14/19 04:30 Plt Count 258 Th/cmm (150-400) 04/14/19 04:30 MPV 7.6 fl 04/14/19 04:30 Neutrophils % 73.4 % (40.0-80.0) 04/14/19 04:30 Lymphocytes % 17.1 % (20.0-50.0) L 04/14/19 04:30 Monocytes % 8.7 % (2.0-10.0) 04/14/19 04:30 Eosinophils % 0.6 % (0.0-5.0) 04/14/19 04:30 Basophils % 0.2 % (0.0-2.0) 04/14/19 04:30 PT 9.3 SECONDS (9.5-11.5) L 04/12/19 17:45 INR 0.88 (0.5-1.4) 04/12/19 17:45 Sodium 136 mEq/L (136-145) 04/14/19 04:30 Potassium 3.5 mEq/L (3.5-5.1) 04/14/19 04:30 Chloride 104 mEq/L (98-107) 04/14/19 04:30 Carbon Dioxide 24.0 mEq/L (21.0-31.0) 04/14/19 04:30 Anion Gap 11.5 (7.0-16.0) 04/14/19 04:30 BUN 15 mg/dL (7-25) 04/14/19 04:30 Creatinine 0.9 mg/dL (0.6-1.2) 04/14/19 04:30 Est GFR ( Amer) TNP 04/14/19 04:30 Est GFR (Non-Af Amer) TNP 04/14/19 04:30 BUN/Creatinine Ratio 16.7 04/14/19 04:30 Glucose 130 mg/dL (70-105) H 04/14/19 04:30 Calcium 9.1 mg/dL (8.6-10.3) 04/14/19 04:30 Total Bilirubin 0.5 mg/dL (0.3-1.0) 04/14/19 04:30 AST 35 U/L (13-39) 04/14/19 04:30 ALT 17 U/L (7-52) 04/14/19 04:30 Alkaline Phosphatase 73 U/L (34-104) 04/14/19 04:30 Creatine Kinase 27 U/L (30-223) L 04/12/19 17:45 Troponin I < 0.01 ng/mL (0.01-0.05) L 04/12/19 17:45 B-Natriuretic Peptide 27.9 pg/mL (5.0-100.0) 04/12/19 17:45 Total Protein 6.4 gm/dL (6.0-8.3) 04/14/19 04:30 Albumin 3.6 gm/dL (3.7-5.3) L 04/14/19 04:30 Globulin 2.8 gm/dL 04/14/19 04:30 Albumin/Globulin Ratio 1.3 (1.0-1.8) 04/14/19 04:30 Triglycerides 302 mg/dL (<150) H 04/12/19 17:45 Cholesterol 180 mg/dL (<200) 04/12/19 17:45 LDL Cholesterol Direct 93 mg/dL (75-193) 04/12/19 17:45 HDL Cholesterol 34 mg/dL (23-92) 04/12/19 17:45 Amylase 54 U/L (29-103) 04/12/19 17:45 Lipase 59 U/L (11-82) 04/12/19 17:45 Urine Source CLEAN C 04/12/19 20:50 Urine Color YELLOW 04/12/19 20:50 Urine Clarity CLEAR (CLEAR) 04/12/19 20:50 Urine pH 5.0 (4.6 - 8.0) 04/12/19 20:50 Ur Specific [place] 1.020 (1.005-1.030) 04/12/19 20:50 Urine Protein NEGATIVE mg/dL (NEGATIVE) 04/12/19 20:50 Urine Glucose (UA) NEGATIVE mg/dL (NEGATIVE) 04/12/19 20:50 Urine Ketones NEGATIVE mg/dL (NEGATIVE) 04/12/19 20:50 Urine Blood LARGE (NEGATIVE) H 04/12/19 20:50 Urine Nitrate NEGATIVE (NEGATIVE) 04/12/19 20:50 Urine Bilirubin NEGATIVE (NEGATIVE) 04/12/19 20:50 Urine Urobilinogen 0.2 E.U./dL (0.2 - 1.0) 04/12/19 20:50 Ur Leukocyte Esterase NEGATIVE (NEGATIVE) 04/12/19 20:50 Urine RBC 5-10 /hpf (0-5) H 04/12/19 20:50 Urine WBC 2-5 /hpf (0-5) 04/12/19 20:50 Ur Epithelial Cells FEW /lpf (FEW) 04/12/19 20:50 Urine Bacteria FEW /hpf (NONE SEEN) 04/12/19 20:50 - Physical Exam Vitals and I&O: Vital Signs Temp 97.2 F 04/14/19 10:00 Pulse 68 04/14/19 10:00 Resp 21 04/14/19 10:00 BP 105/39 04/14/19 10:00 Pulse Ox 100 04/14/19 10:00 Intake & Output 04/13/19 04/14/19 04/14/19 18:59 06:59 18:59 Intake Total 450 72.167 Output Total 950 550 Balance -500 -477.833 Weight (lbs) 45.813 kg 45.858 kg Intake: Intake, IV Amount 52.167 Diltiazem 125 mg In 52.167 Dextrose 5% 100 ml @ 10 MG/HR 10 mls/hr IV TITR SUSAN Rx#:[id number] Oral 450 20 Output: Urine 950 550 Other: # Bowel Movements 0 Stool Characteristics Soft Weight Source Bedscale Bedscale Active Medications: Current Medications Acetaminophen (Tylenol 650mg Supp) 650 mg RC Q4H PRN PRN Reason: Fever > 101 Stop: 06/13/19 05:57 Albuterol/Ipratropium (Duoneb Neb) 3 ml HHN Q6HRT [facility] Stop: 06/12/19 00:59 Last Admin: 04/14/19 07:16 Dose: 3 ml Cholecalciferol (Vitamin D3) 5,000 iu PO DAILY [facility] Stop: 06/12/19 08:59 Last Admin: 04/13/19 08:12 Dose: 5,000 iu Docusate Sodium (Colace) 200 mg PO DAILY [facility] Stop: 06/13/19 08:59 Ferrous Sulfate (Iron) 325 mg PO DAILY [facility] Stop: 06/13/19 08:59 Folic Acid (Folate) 1 mg PO DAILY [facility] Stop: 06/13/19 08:59 Guaifenesin/Dextromethorphan (Robitussin Dm) 10 ml PO Q6HR PRN PRN Reason: Cough Stop: 06/12/19 19:17 Diltiazem HCl 125 mg/ Dextrose 125 mls @ 10 mls/hr IV TITR [facility]; Protocol Stop: 06/12/19 17:29 Last Titration: 04/14/19 00:40 Dose: 0 mg/hr, 0 mls/hr Lorazepam (Ativan) 1 mg IVP Q4HR PRN; Protocol PRN Reason: Agitation Stop: 06/12/19 15:32 Last Admin: 04/14/19 00:00 Dose: 1 mg Losartan Potassium (Cozaar) 50 mg PO DAILY [facility] Stop: 06/13/19 08:59 Last Admin: 04/14/19 09:53 Dose: Not Given Magnesium Hydroxide (Milk Of Magnesia) 30 ml PO HS PRN PRN Reason: Constipation Stop: 06/12/19 19:17 Miscellaneous (Glycopyrrolate/Formoterol Fum [Bevespi Aerosphere Inhaler]) 2 puff IH BID [facility] Stop: 06/13/19 08:59 Montelukast Sodium (Singulair) 10 mg PO HS [facility] Stop: 06/12/19 20:59 Last Admin: 04/13/19 20:27 Dose: 10 mg Quetiapine Fumarate (Seroquel) 12.5 mg PO BID [facility]; Protocol Stop: 06/13/19 08:59 General: No acute distress HEENT: Mucous membr. moist/pink Neck: Supple, JVD Cardiovascular: Normal S1, Normal S2, Systolic murmurs Abdomen: Bowel sounds, Soft Extremities: Edema Neurological: Strength at 5/5 X4 ext, Cranial nerves 3-12 NL, Reflexes 2+ - Procedures Procedures: Procedures Procedure Code Date APPENDECTOMY ADD-ON 33282 07/30/16 BYPASS DESCENDING COLON TO CUTANEOUS, OPEN APPROACH [id number] 07/30/16 CORRECT RECTAL PROLAPSE 83862 07/30/16 CORRECT RECTAL PROLAPSE 32846 07/30/16 EXCISION OF SIGMOID COLON, OPEN APPROACH [id number] 07/30/16 PARTIAL REMOVAL OF COLON 05178 07/30/16 REPOSITION RECTUM, OPEN APPROACH [id number] 07/30/16 RESECTION OF APPENDIX, OPEN APPROACH [id number] 07/30/16 RESPIRATORY VENTILATION, LESS THAN 24 CONSECUTIVE HOURS [id number] 07/30/16 Assessment/Plan - Assessment Assessment: Super ventricular tachycardia Upper GI bleed Hypertension Dementia Asthma COPD Hyperlipidemia Current Osteoporosis - Plan Plan: Continue present management Nutritional Asmnt/Malnutr-PDOC - Dietary Evaluation Malnutrition Findings (Please click <Entered> for more info): Nutritional Asmnt/Malnutrition Start: 04/13/19 17: 00 Text: Status: Complete Freq: Protocol: Document 04/13/19 17:01 BLANQUITAG (Rec: 04/13/19 17:13 NELIDAG [email or web address]) Nutritional Asmnt/Malnutrition Patient General Information Nutritional Screening High Risk Diagnosis GI bleed Pertinent Medical Hx/Surgical Hx HTN, asthma/COPD, dyslipidemia , PUD/GERD, colostomy Subjective Information Pt seen lying in bed, awake and disoriented, Cantonese speaking. Per MARICEL Alva, pt does not like the food provided, consumed 10% of breakfast this morning. Pt has missing teeth noted. Current Diet Order/ Nutrition Support pureed BERTHA Pertinent Medications vit D3, colace, iron, folate Pertinent Labs 04/12 K 3.4, Glucose 120, TG 302 Nutritional Hx/Data Height 1.3 m Height (Calculated Centimeters) 129.5 Current Weight (lbs) 45.813 kg Weight (Calculated Kilograms) 45.8 Weight (Calculated Grams) 10864.8 [place] Body Weight 82 Body Mass Index (BMI) 27.3 Weight Status Overweight GI Symptoms GI Symptoms None Last BM 04/13 Difficult in: None Skin Integrity/Comment: intact Current %PO Negligible < 25% Estimated Nutritional Goals BEE in Kcals: Using Current wt Calories/Kcals/Kg 23-27 Kcals Calculated 9088-9887 Protein: Using Current wt Protein g/k Protein Calculated 46 Fluid: ml 1150-1380ml (25-30ml/kcal) Nutritional Problem 1. Problem Problem inadequate food intake Etiology possible poor appetite and food preference Signs/Symptoms: PO intake <20% Malnutrition Alert Is there a minimum of two criteria No selected? Query Text:Check all the applicable criteria. A minimum of two criteria are recommended for diagnosis of either severe or non-severe malnutrition. Malnutrition Related to Morbid Obesity Malnutrition related to morbid obesity No Intervention/Recommendation Comments 1. Continue with pureed BERTHA diet as ordered. Consider ground textured diet if pt tolerated. Add Ensure TID for extra kcal and protein. 2. Monitor PO intake, wt, labs and skin integrity 3. F/U as high risk in 2-3 days Expected Outcomes/Goals Expected Outcomes/Goals 1. PO intake to meet at least 75% of nutritional needs. 2. Wt stability, skin to remain intact, labs to approach WNL.
[2019-04-14] MEDS: Ferrous Sulfate 325 MG TAB PO SCH (11:45)
[2019-04-14] MEDS: Multivitamin w/ Minerals Tab PO SCH (11:46)
--- NOTE | 2019-04-14 17:03 | GI Progress Note ---
Subjective - Review of Systems Service Date: 04/14/19 Subjective: EVENTS NOTED. NO RECTAL BLEEDING. NOT MUCH COLOSTOMY OUTPT. DARLING ORAL DIET. GI OBJECTIVE - Results Result Diagrams: 04/14/19 04:30 04/14/19 04:30 Recent Labs: Laboratory Last Values WBC 12.5 Th/cmm (4.8-10.8) H 04/14/19 04:30 RBC 3.75 Mil/cmm (3.80-5.20) L 04/14/19 04:30 Hgb 12.7 gm/dL (12-16) 04/14/19 04:30 Hct 37.1 % (41.0-60) L 04/14/19 04:30 MCV 99.0 fl (81-100) 04/14/19 04:30 MCH 34.0 pg (27.0-31.0) H 04/14/19 04:30 MCHC Differential 34.3 pg (28.0-36.0) 04/14/19 04:30 RDW 12.2 % (11.5-20.0) 04/14/19 04:30 Plt Count 258 Th/cmm (150-400) 04/14/19 04:30 MPV 7.6 fl 04/14/19 04:30 Neutrophils % 73.4 % (40.0-80.0) 04/14/19 04:30 Lymphocytes % 17.1 % (20.0-50.0) L 04/14/19 04:30 Monocytes % 8.7 % (2.0-10.0) 04/14/19 04:30 Eosinophils % 0.6 % (0.0-5.0) 04/14/19 04:30 Basophils % 0.2 % (0.0-2.0) 04/14/19 04:30 PT 9.3 SECONDS (9.5-11.5) L 04/12/19 17:45 INR 0.88 (0.5-1.4) 04/12/19 17:45 Sodium 136 mEq/L (136-145) 04/14/19 04:30 Potassium 3.5 mEq/L (3.5-5.1) 04/14/19 04:30 Chloride 104 mEq/L (98-107) 04/14/19 04:30 Carbon Dioxide 24.0 mEq/L (21.0-31.0) 04/14/19 04:30 Anion Gap 11.5 (7.0-16.0) 04/14/19 04:30 BUN 15 mg/dL (7-25) 04/14/19 04:30 Creatinine 0.9 mg/dL (0.6-1.2) 04/14/19 04:30 Est GFR ( Amer) TNP 04/14/19 04:30 Est GFR (Non-Af Amer) TNP 04/14/19 04:30 BUN/Creatinine Ratio 16.7 04/14/19 04:30 Glucose 130 mg/dL (70-105) H 04/14/19 04:30 Calcium 9.1 mg/dL (8.6-10.3) 04/14/19 04:30 Total Bilirubin 0.5 mg/dL (0.3-1.0) 04/14/19 04:30 AST 35 U/L (13-39) 04/14/19 04:30 ALT 17 U/L (7-52) 04/14/19 04:30 Alkaline Phosphatase 73 U/L (34-104) 04/14/19 04:30 Creatine Kinase 27 U/L (30-223) L 04/12/19 17:45 Troponin I < 0.01 ng/mL (0.01-0.05) L 04/12/19 17:45 B-Natriuretic Peptide 27.9 pg/mL (5.0-100.0) 04/12/19 17:45 Total Protein 6.4 gm/dL (6.0-8.3) 04/14/19 04:30 Albumin 3.6 gm/dL (3.7-5.3) L 04/14/19 04:30 Globulin 2.8 gm/dL 04/14/19 04:30 Albumin/Globulin Ratio 1.3 (1.0-1.8) 04/14/19 04:30 Triglycerides 302 mg/dL (<150) H 04/12/19 17:45 Cholesterol 180 mg/dL (<200) 04/12/19 17:45 LDL Cholesterol Direct 93 mg/dL (75-193) 04/12/19 17:45 HDL Cholesterol 34 mg/dL (23-92) 04/12/19 17:45 Amylase 54 U/L (29-103) 04/12/19 17:45 Lipase 59 U/L (11-82) 04/12/19 17:45 Urine Source CLEAN C 04/12/19 20:50 Urine Color YELLOW 04/12/19 20:50 Urine Clarity CLEAR (CLEAR) 04/12/19 20:50 Urine pH 5.0 (4.6 - 8.0) 04/12/19 20:50 Ur Specific [place] 1.020 (1.005-1.030) 04/12/19 20:50 Urine Protein NEGATIVE mg/dL (NEGATIVE) 04/12/19 20:50 Urine Glucose (UA) NEGATIVE mg/dL (NEGATIVE) 04/12/19 20:50 Urine Ketones NEGATIVE mg/dL (NEGATIVE) 04/12/19 20:50 Urine Blood LARGE (NEGATIVE) H 04/12/19 20:50 Urine Nitrate NEGATIVE (NEGATIVE) 04/12/19 20:50 Urine Bilirubin NEGATIVE (NEGATIVE) 04/12/19 20:50 Urine Urobilinogen 0.2 E.U./dL (0.2 - 1.0) 04/12/19 20:50 Ur Leukocyte Esterase NEGATIVE (NEGATIVE) 04/12/19 20:50 Urine RBC 5-10 /hpf (0-5) H 04/12/19 20:50 Urine WBC 2-5 /hpf (0-5) 04/12/19 20:50 Ur Epithelial Cells FEW /lpf (FEW) 04/12/19 20:50 Urine Bacteria FEW /hpf (NONE SEEN) 04/12/19 20:50 - Physical Exam Vitals and I&O: Vital Signs Temp 98.3 F 04/14/19 11:00 Pulse 87 04/14/19 14:00 Resp 24 04/14/19 14:00 BP 122/43 04/14/19 14:00 Pulse Ox 97 04/14/19 14:00 Intake & Output 04/13/19 04/14/19 04/14/19 18:59 06:59 18:59 Intake Total 450 72.167 Output Total 950 550 Balance -500 -477.833 Weight (lbs) 45.813 kg 45.858 kg Intake: Intake, IV Amount 52.167 Diltiazem 125 mg In 52.167 Dextrose 5% 100 ml @ 10 MG/HR 10 mls/hr IV TITR SUSAN Rx#:[id number] Oral 450 20 Output: Urine 950 550 Other: # Bowel Movements 0 Stool Characteristics Soft Weight Source Bedscale Bedscale Active Medications: Current Medications Acetaminophen (Tylenol 650mg Supp) 650 mg RC Q4H PRN PRN Reason: Fever > 101 Stop: 06/13/19 05:57 Albuterol/Ipratropium (Duoneb Neb) 3 ml HHN Q6HRT SUSAN Stop: 06/12/19 00:59 Last Admin: 04/14/19 13:48 Dose: 3 ml Cholecalciferol (Vitamin D3) 5,000 iu PO DAILY [facility] Stop: 06/12/19 08:59 Last Admin: 04/14/19 11:45 Dose: Not Given Docusate Sodium (Colace) 200 mg PO DAILY [facility] Stop: 06/13/19 08:59 Last Admin: 04/14/19 11:45 Dose: Not Given Ferrous Sulfate (Iron) 325 mg PO DAILY [facility] Stop: 06/13/19 08:59 Last Admin: 04/14/19 11:45 Dose: Not Given Folic Acid (Folate) 1 mg PO DAILY [facility] Stop: 06/13/19 08:59 Last Admin: 04/14/19 11:46 Dose: Not Given Guaifenesin/Dextromethorphan (Robitussin Dm) 10 ml PO Q6HR PRN PRN Reason: Cough Stop: 06/12/19 19:17 Diltiazem HCl 125 mg/ Dextrose 125 mls @ 10 mls/hr IV TITR SUSAN; Protocol Stop: 06/12/19 17:29 Last Titration: 04/14/19 00:40 Dose: 0 mg/hr, 0 mls/hr Lorazepam (Ativan) 1 mg IVP Q4HR PRN; Protocol PRN Reason: Agitation Stop: 06/12/19 15:32 Last Admin: 04/14/19 13:17 Dose: 1 mg Losartan Potassium (Cozaar) 50 mg PO DAILY [facility] Stop: 06/13/19 08:59 Last Admin: 04/14/19 09:53 Dose: Not Given Magnesium Hydroxide (Milk Of Magnesia) 30 ml PO HS PRN PRN Reason: Constipation Stop: 06/12/19 19:17 Miscellaneous (Glycopyrrolate/Formoterol Fum [Bevespi Aerosphere Inhaler]) 2 puff IH BID [facility] Stop: 06/13/19 08:59 Montelukast Sodium (Singulair) 10 mg PO HS [facility] Stop: 06/12/19 20:59 Last Admin: 04/13/19 20:27 Dose: 10 mg Quetiapine Fumarate (Seroquel) 12.5 mg PO BID SUSAN; Protocol Stop: 06/13/19 08:59 Last Admin: 04/14/19 11:46 Dose: Not Given General: No acute distress Cardiovascular: Regular rate Lungs: Clear to auscultation Abdomen: Bowel sounds, Soft, Other (INTACT LLQ COLOSTOMY), no Tender - Procedures Procedures: Procedures Procedure Code Date APPENDECTOMY ADD-ON 15720 07/30/16 BYPASS DESCENDING COLON TO CUTANEOUS, OPEN APPROACH [id number] 07/30/16 CORRECT RECTAL PROLAPSE 74169 07/30/16 CORRECT RECTAL PROLAPSE 47471 07/30/16 EXCISION OF SIGMOID COLON, OPEN APPROACH [id number] 07/30/16 PARTIAL REMOVAL OF COLON 71790 07/30/16 REPOSITION RECTUM, OPEN APPROACH [id number] 07/30/16 RESECTION OF APPENDIX, OPEN APPROACH [id number] 07/30/16 RESPIRATORY VENTILATION, LESS THAN 24 CONSECUTIVE HOURS [id number] 07/30/16 Assessment/Plan - Assessment Assessment: IMPRESSION: 1. POSSIBLE RECTAL VS. VAGINAL BLEEDING - NO BLEEDING HERE. HEMATURIA PER URINALYSIS. 2. 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 MAY HAVE DIVERSION COLITIS CAUSING INTERMITTENT RECTAL BLEEDING. 3. DEMENTIA. 4. DYSPHAGIA. RECS: 1. MONITOR HGB. 2. CONSIDER HC SUPP OR MESALAMINE ENEMA PRN. 3. ORAL DIET PER SPEECH THERAPY WITH ASPIRATION PRECAUTIONS. 4. CONSERVATIVE NON-ENDOSCOPIC MANAGEMENT OF BLEEDING AT THIS TIME.
--- NOTE | 2019-04-14 18:31 | Internal Medicine Prog Note ---
Internal Medicine Subjective - Subjective Service Date: 04/14/19 Patient seen and examined:: with staff Patient is:: awake Per staff patient has:: tolerating meds Internal Medicine Objective - Results Result Diagrams: 04/14/19 04:30 04/14/19 04:30 Recent Labs: Laboratory Last Values WBC 12.5 Th/cmm (4.8-10.8) H 04/14/19 04:30 RBC 3.75 Mil/cmm (3.80-5.20) L 04/14/19 04:30 Hgb 12.7 gm/dL (12-16) 04/14/19 04:30 Hct 37.1 % (41.0-60) L 04/14/19 04:30 MCV 99.0 fl (81-100) 04/14/19 04:30 MCH 34.0 pg (27.0-31.0) H 04/14/19 04:30 MCHC Differential 34.3 pg (28.0-36.0) 04/14/19 04:30 RDW 12.2 % (11.5-20.0) 04/14/19 04:30 Plt Count 258 Th/cmm (150-400) 04/14/19 04:30 MPV 7.6 fl 04/14/19 04:30 Neutrophils % 73.4 % (40.0-80.0) 04/14/19 04:30 Lymphocytes % 17.1 % (20.0-50.0) L 04/14/19 04:30 Monocytes % 8.7 % (2.0-10.0) 04/14/19 04:30 Eosinophils % 0.6 % (0.0-5.0) 04/14/19 04:30 Basophils % 0.2 % (0.0-2.0) 04/14/19 04:30 PT 9.3 SECONDS (9.5-11.5) L 04/12/19 17:45 INR 0.88 (0.5-1.4) 04/12/19 17:45 Sodium 136 mEq/L (136-145) 04/14/19 04:30 Potassium 3.5 mEq/L (3.5-5.1) 04/14/19 04:30 Chloride 104 mEq/L (98-107) 04/14/19 04:30 Carbon Dioxide 24.0 mEq/L (21.0-31.0) 04/14/19 04:30 Anion Gap 11.5 (7.0-16.0) 04/14/19 04:30 BUN 15 mg/dL (7-25) 04/14/19 04:30 Creatinine 0.9 mg/dL (0.6-1.2) 04/14/19 04:30 Est GFR ( Amer) TNP 04/14/19 04:30 Est GFR (Non-Af Amer) TNP 04/14/19 04:30 BUN/Creatinine Ratio 16.7 04/14/19 04:30 Glucose 130 mg/dL (70-105) H 04/14/19 04:30 Calcium 9.1 mg/dL (8.6-10.3) 04/14/19 04:30 Total Bilirubin 0.5 mg/dL (0.3-1.0) 04/14/19 04:30 AST 35 U/L (13-39) 04/14/19 04:30 ALT 17 U/L (7-52) 04/14/19 04:30 Alkaline Phosphatase 73 U/L (34-104) 04/14/19 04:30 Creatine Kinase 27 U/L (30-223) L 04/12/19 17:45 Troponin I < 0.01 ng/mL (0.01-0.05) L 04/12/19 17:45 B-Natriuretic Peptide 27.9 pg/mL (5.0-100.0) 04/12/19 17:45 Total Protein 6.4 gm/dL (6.0-8.3) 04/14/19 04:30 Albumin 3.6 gm/dL (3.7-5.3) L 04/14/19 04:30 Globulin 2.8 gm/dL 04/14/19 04:30 Albumin/Globulin Ratio 1.3 (1.0-1.8) 04/14/19 04:30 Triglycerides 302 mg/dL (<150) H 04/12/19 17:45 Cholesterol 180 mg/dL (<200) 04/12/19 17:45 LDL Cholesterol Direct 93 mg/dL (75-193) 04/12/19 17:45 HDL Cholesterol 34 mg/dL (23-92) 04/12/19 17:45 Amylase 54 U/L (29-103) 04/12/19 17:45 Lipase 59 U/L (11-82) 04/12/19 17:45 Urine Source CLEAN C 04/12/19 20:50 Urine Color YELLOW 04/12/19 20:50 Urine Clarity CLEAR (CLEAR) 04/12/19 20:50 Urine pH 5.0 (4.6 - 8.0) 04/12/19 20:50 Ur Specific [place] 1.020 (1.005-1.030) 04/12/19 20:50 Urine Protein NEGATIVE mg/dL (NEGATIVE) 04/12/19 20:50 Urine Glucose (UA) NEGATIVE mg/dL (NEGATIVE) 04/12/19 20:50 Urine Ketones NEGATIVE mg/dL (NEGATIVE) 04/12/19 20:50 Urine Blood LARGE (NEGATIVE) H 04/12/19 20:50 Urine Nitrate NEGATIVE (NEGATIVE) 04/12/19 20:50 Urine Bilirubin NEGATIVE (NEGATIVE) 04/12/19 20:50 Urine Urobilinogen 0.2 E.U./dL (0.2 - 1.0) 04/12/19 20:50 Ur Leukocyte Esterase NEGATIVE (NEGATIVE) 04/12/19 20:50 Urine RBC 5-10 /hpf (0-5) H 04/12/19 20:50 Urine WBC 2-5 /hpf (0-5) 04/12/19 20:50 Ur Epithelial Cells FEW /lpf (FEW) 04/12/19 20:50 Urine Bacteria FEW /hpf (NONE SEEN) 04/12/19 20:50 - Physical Exam Vitals and I&O: Vital Signs Temp 98.2 F 04/14/19 15:00 Pulse 94 04/14/19 18:00 Resp 23 04/14/19 18:00 BP 125/45 04/14/19 18:00 Pulse Ox 93 04/14/19 18:00 Intake & Output 04/13/19 04/14/19 04/14/19 18:59 06:59 18:59 Intake Total 450 72.167 Output Total 950 550 Balance -500 -477.833 Weight (lbs) 101 lb 101 lb 1.6 oz Intake: Intake, IV Amount 52.167 Diltiazem 125 mg In 52.167 Dextrose 5% 100 ml @ 10 MG/HR 10 mls/hr IV TITR SUSAN Rx#:[id number] Oral 450 20 Output: Urine 950 550 Other: # Bowel Movements 0 Stool Characteristics Soft Weight Source Bedscale Bedscale Active Medications: Current Medications Acetaminophen (Tylenol 650mg Supp) 650 mg RC Q4H PRN PRN Reason: Fever > 101 Stop: 06/13/19 05:57 Albuterol/Ipratropium (Duoneb Neb) 3 ml HHN Q6HRT SUSAN Stop: 06/12/19 00:59 Last Admin: 04/14/19 13:48 Dose: 3 ml Cholecalciferol (Vitamin D3) 5,000 iu PO DAILY [facility] Stop: 06/12/19 08:59 Last Admin: 04/14/19 11:45 Dose: Not Given Docusate Sodium (Colace) 200 mg PO DAILY [facility] Stop: 06/13/19 08:59 Last Admin: 04/14/19 11:45 Dose: Not Given Ferrous Sulfate (Iron) 325 mg PO DAILY [facility] Stop: 06/13/19 08:59 Last Admin: 04/14/19 11:45 Dose: Not Given Folic Acid (Folate) 1 mg PO DAILY [facility] Stop: 06/13/19 08:59 Last Admin: 04/14/19 11:46 Dose: Not Given Guaifenesin/Dextromethorphan (Robitussin Dm) 10 ml PO Q6HR PRN PRN Reason: Cough Stop: 06/12/19 19:17 Diltiazem HCl 125 mg/ Dextrose 125 mls @ 10 mls/hr IV TITR SUSAN; Protocol Stop: 06/12/19 17:29 Last Titration: 04/14/19 00:40 Dose: 0 mg/hr, 0 mls/hr Lorazepam (Ativan) 1 mg IVP Q4HR PRN; Protocol PRN Reason: Agitation Stop: 06/12/19 15:32 Last Admin: 04/14/19 13:17 Dose: 1 mg Losartan Potassium (Cozaar) 50 mg PO DAILY [facility] Stop: 06/13/19 08:59 Last Admin: 04/14/19 09:53 Dose: Not Given Magnesium Hydroxide (Milk Of Magnesia) 30 ml PO HS PRN PRN Reason: Constipation Stop: 06/12/19 19:17 Montelukast Sodium (Singulair) 10 mg PO HS [facility] Stop: 06/12/19 20:59 Last Admin: 04/13/19 20:27 Dose: 10 mg Quetiapine Fumarate (Seroquel) 12.5 mg PO BID [facility]; Protocol Stop: 06/13/19 08:59 Last Admin: 04/14/19 17:54 Dose: Not Given General: weak, alert HEENT: NC/AT, PERRLA Neck: Supple Lungs: CTAB Cardiovascular: RRR Abdomen: positive bowel sound - Procedures Procedures: Procedures Procedure Code Date APPENDECTOMY ADD-ON 82267 07/30/16 BYPASS DESCENDING COLON TO CUTANEOUS, OPEN APPROACH [id number] 07/30/16 CORRECT RECTAL PROLAPSE 31475 07/30/16 CORRECT RECTAL PROLAPSE 94891 07/30/16 EXCISION OF SIGMOID COLON, OPEN APPROACH [id number] 07/30/16 PARTIAL REMOVAL OF COLON 74199 07/30/16 REPOSITION RECTUM, OPEN APPROACH [id number] 07/30/16 RESECTION OF APPENDIX, OPEN APPROACH [id number] 07/30/16 RESPIRATORY VENTILATION, LESS THAN 24 CONSECUTIVE HOURS [id number] 07/30/16 Internal Medicine Assmt/Plan - Assessment Assessment: Hypertension. Dementia. Asthma. COPD. Dyslipidemia. PUD. GERD. Hematochezia. Melena. GI Bleed. Hyperlipidemia. Hypokalemia. . - Plan Plan: tx to tele am labs continue current plan of care Nutritional Asmnt/Malnutr-PDOC - Dietary Evaluation Malnutrition Findings (Please click <Entered> for more info): Nutritional Asmnt/Malnutrition Start: 04/13/19 17: 00 Text: Status: Complete Freq: Protocol: Document 04/13/19 17:01 CHARIS (Rec: 04/13/19 17:13 CHARIS [id number]) Nutritional Asmnt/Malnutrition Patient General Information Nutritional Screening High Risk Diagnosis GI bleed Pertinent Medical Hx/Surgical Hx HTN, asthma/COPD, dyslipidemia , PUD/GERD, colostomy Subjective Information Pt seen lying in bed, awake and disoriented, Cantonese speaking. Per MARICEL Alva, pt does not like the food provided, consumed 10% of breakfast this morning. Pt has missing teeth noted. Current Diet Order/ Nutrition Support pureed BERTHA Pertinent Medications vit D3, colace, iron, folate Pertinent Labs 04/12 K 3.4, Glucose 120, TG 302 Nutritional Hx/Data Height 4 ft 3 in Height (Calculated Centimeters) 129.5 Current Weight (lbs) 101 lb Weight (Calculated Kilograms) 45.8 Weight (Calculated Grams) 27651.8 [place] Body Weight 82 Body Mass Index (BMI) 27.3 Weight Status Overweight GI Symptoms GI Symptoms None Last BM 04/13 Difficult in: None Skin Integrity/Comment: intact Current %PO Negligible < 25% Estimated Nutritional Goals BEE in Kcals: Using Current wt Calories/Kcals/Kg 23-27 Kcals Calculated 1705-3744 Protein: Using Current wt Protein g/k Protein Calculated 46 Fluid: ml 1150-1380ml (25-30ml/kcal) Nutritional Problem 1. Problem Problem inadequate food intake Etiology possible poor appetite and food preference Signs/Symptoms: PO intake <20% Malnutrition Alert Is there a minimum of two criteria No selected? Query Text:Check all the applicable criteria. A minimum of two criteria are recommended for diagnosis of either severe or non-severe malnutrition. Malnutrition Related to Morbid Obesity Malnutrition related to morbid obesity No Intervention/Recommendation Comments 1. Continue with pureed BERTHA diet as ordered. Consider ground textured diet if pt tolerated. Add Ensure TID for extra kcal and protein. 2. Monitor PO intake, wt, labs and skin integrity 3. F/U as high risk in 2-3 days Expected Outcomes/Goals Expected Outcomes/Goals 1. PO intake to meet at least 75% of nutritional needs. 2. Wt stability, skin to remain intact, labs to approach WNL.
[2019-04-15] MEDS: Albuterol/Ipratropium Neb 3 ML AERS HHN SCH ×3 (00:16→13:27)
[2019-04-15 06:44] LABS: % BASOPHILS 0.3 % (0.0-2.0); % EOSINOPHILS 2.7 % (0.0-5.0); % MONOCYTES 9.8 % (2.0-10.0); % NEUTROPHILS 63.2 % (40.0-80.0); EOSINOPHILE ABSOLUTE 0.2 Th/cmm (0.1-0.4); HEMATOCRIT 35.9 % (41.0-60); HEMOGLOBIN 12.2 gm/dL (12-16); LYMPHOCYTE ABSOLUTE 1.8 Th/cmm (1.5-3.0); MEAN CORPUSCULAR HEMOGLOBIN 33.6 pg (27.0-31.0); MEAN CORPUSCULAR HGB CONC 33.9 pg (28.0-36.0); MONOCYTE ABSOLUTE 0.7 Th/cmm (0.3-1.0); NEUTROPHILE ABSOLUTE 4.7 Th/cmm (1.8-8.0); PLATELET COUNT 270 Th/cmm (150-400); RED BLOOD COUNT 3.63 Mil/cmm (3.80-5.20); WHITE BLOOD COUNT 7.4 Th/cmm (4.8-10.8)
[2019-04-15 06:53] LABS: ANION GAP 10.6 (7.0-16.0); BUN - UREA NITROGEN 20 mg/dL (7-25); CALCIUM SERUM 8.6 mg/dL (8.6-10.3); CARBON DIOXIDE 26.9 mEq/L (21.0-31.0); CHLORIDE 106 mEq/L (98-107); CREATININE - SERUM 1.1 mg/dL (0.6-1.2); GLUCOSE 100 mg/dL (70-105); POTASSIUM SERUM 3.5 mEq/L (3.5-5.1); SODIUM SERUM 140 mEq/L (136-145)
--- NOTE | 2019-04-15 06:57 | Progress Notes ---
DATE: SUBJECTIVE: Chart was reviewed and the patient interviewed. Also discussed the patient's condition with the staff and reviewed records and labs. The patient is calm and is quiet. The patient also had no agitation and compliant with taking her medications with no side effects. The patient also is not suspicious. ASSESSMENT: The patient is calm and cooperative. TREATMENT PLAN: Continue to monitor her behavior. Also, continue adjusting psychotropic medications and work on her behavior. [facility]# [id number]
[2019-04-15] MEDS: Multivitamin w/ Minerals Tab PO SCH (09:44)
[2019-04-15] MEDS: Ferrous Sulfate 325 MG TAB PO SCH (09:44)
--- NOTE | 2019-04-15 11:17 | Internal Medicine Prog Note ---
Internal Medicine Subjective - Subjective Service Date: 04/15/19 Patient seen and examined:: with staff Patient is:: awake, verbal Patient Complaints of:: other (Mood and behavior improving on present meds/tx.) Per staff patient has:: no adverse event, no episodes of fall, tolerating meds Internal Medicine Objective - Results Result Diagrams: 04/15/19 05:35 04/15/19 05:35 Recent Labs: Laboratory Last Values WBC 7.4 Th/cmm (4.8-10.8) 04/15/19 05:35 RBC 3.63 Mil/cmm (3.80-5.20) L 04/15/19 05:35 Hgb 12.2 gm/dL (12-16) 04/15/19 05:35 Hct 35.9 % (41.0-60) L 04/15/19 05:35 MCV 99.0 fl (81-100) 04/15/19 05:35 MCH 33.6 pg (27.0-31.0) H 04/15/19 05:35 MCHC Differential 33.9 pg (28.0-36.0) 04/15/19 05:35 RDW 12.0 % (11.5-20.0) 04/15/19 05:35 Plt Count 270 Th/cmm (150-400) 04/15/19 05:35 MPV 7.7 fl 04/15/19 05:35 Neutrophils % 63.2 % (40.0-80.0) 04/15/19 05:35 Lymphocytes % 24.0 % (20.0-50.0) 04/15/19 05:35 Monocytes % 9.8 % (2.0-10.0) 04/15/19 05:35 Eosinophils % 2.7 % (0.0-5.0) 04/15/19 05:35 Basophils % 0.3 % (0.0-2.0) 04/15/19 05:35 PT 9.3 SECONDS (9.5-11.5) L 04/12/19 17:45 INR 0.88 (0.5-1.4) 04/12/19 17:45 Sodium 140 mEq/L (136-145) 04/15/19 05:35 Potassium 3.5 mEq/L (3.5-5.1) 04/15/19 05:35 Chloride 106 mEq/L (98-107) 04/15/19 05:35 Carbon Dioxide 26.9 mEq/L (21.0-31.0) 04/15/19 05:35 Anion Gap 10.6 (7.0-16.0) 04/15/19 05:35 BUN 20 mg/dL (7-25) 04/15/19 05:35 Creatinine 1.1 mg/dL (0.6-1.2) 04/15/19 05:35 Est GFR ( Amer) TNP 04/15/19 05:35 Est GFR (Non-Af Amer) TNP 04/15/19 05:35 BUN/Creatinine Ratio 18.2 04/15/19 05:35 Glucose 100 mg/dL (70-105) 04/15/19 05:35 Calcium 8.6 mg/dL (8.6-10.3) 04/15/19 05:35 Total Bilirubin 0.5 mg/dL (0.3-1.0) 04/14/19 04:30 AST 35 U/L (13-39) 04/14/19 04:30 ALT 17 U/L (7-52) 04/14/19 04:30 Alkaline Phosphatase 73 U/L (34-104) 04/14/19 04:30 Creatine Kinase 27 U/L (30-223) L 04/12/19 17:45 Troponin I < 0.01 ng/mL (0.01-0.05) L 04/12/19 17:45 B-Natriuretic Peptide 27.9 pg/mL (5.0-100.0) 04/12/19 17:45 Total Protein 6.4 gm/dL (6.0-8.3) 04/14/19 04:30 Albumin 3.6 gm/dL (3.7-5.3) L 04/14/19 04:30 Globulin 2.8 gm/dL 04/14/19 04:30 Albumin/Globulin Ratio 1.3 (1.0-1.8) 04/14/19 04:30 Triglycerides 302 mg/dL (<150) H 04/12/19 17:45 Cholesterol 180 mg/dL (<200) 04/12/19 17:45 LDL Cholesterol Direct 93 mg/dL (75-193) 04/12/19 17:45 HDL Cholesterol 34 mg/dL (23-92) 04/12/19 17:45 Amylase 54 U/L (29-103) 04/12/19 17:45 Lipase 59 U/L (11-82) 04/12/19 17:45 Urine Source CLEAN C 04/12/19 20:50 Urine Color YELLOW 04/12/19 20:50 Urine Clarity CLEAR (CLEAR) 04/12/19 20:50 Urine pH 5.0 (4.6 - 8.0) 04/12/19 20:50 Ur Specific [place] 1.020 (1.005-1.030) 04/12/19 20:50 Urine Protein NEGATIVE mg/dL (NEGATIVE) 04/12/19 20:50 Urine Glucose (UA) NEGATIVE mg/dL (NEGATIVE) 04/12/19 20:50 Urine Ketones NEGATIVE mg/dL (NEGATIVE) 04/12/19 20:50 Urine Blood LARGE (NEGATIVE) H 04/12/19 20:50 Urine Nitrate NEGATIVE (NEGATIVE) 04/12/19 20:50 Urine Bilirubin NEGATIVE (NEGATIVE) 04/12/19 20:50 Urine Urobilinogen 0.2 E.U./dL (0.2 - 1.0) 04/12/19 20:50 Ur Leukocyte Esterase NEGATIVE (NEGATIVE) 04/12/19 20:50 Urine RBC 5-10 /hpf (0-5) H 04/12/19 20:50 Urine WBC 2-5 /hpf (0-5) 04/12/19 20:50 Ur Epithelial Cells FEW /lpf (FEW) 04/12/19 20:50 Urine Bacteria FEW /hpf (NONE SEEN) 04/12/19 20:50 - Physical Exam Vitals and I&O: Vital Signs Temp 98.3 F 04/15/19 08:00 Pulse 73 04/15/19 09:37 Resp 18 04/15/19 08:00 BP 100/52 04/15/19 09:37 Pulse Ox 98 04/15/19 08:00 Intake & Output 04/14/19 04/15/19 04/15/19 18:59 06:59 18:59 Intake Total 250 Output Total 350 200 Balance -100 -200 Weight (lbs) 45.904 kg 45.813 kg Intake: Oral 250 Output: Urine 350 200 Stool 0 Other: Weight Source Bedscale Bedscale Active Medications: Current Medications Acetaminophen (Tylenol 650mg Supp) 650 mg RC Q4H PRN PRN Reason: Fever > 101 Stop: 06/13/19 05:57 Albuterol/Ipratropium (Duoneb Neb) 3 ml HHN Q6HRT [facility] Stop: 06/12/19 00:59 Last Admin: 04/15/19 07:25 Dose: 3 ml Cholecalciferol (Vitamin D3) 5,000 iu PO DAILY [facility] Stop: 06/12/19 08:59 Last Admin: 04/15/19 09:44 Dose: 5,000 iu Docusate Sodium (Colace) 200 mg PO DAILY [facility] Stop: 06/13/19 08:59 Last Admin: 04/15/19 09:44 Dose: 200 mg Ferrous Sulfate (Iron) 325 mg PO DAILY [facility] Stop: 06/13/19 08:59 Last Admin: 04/15/19 09:44 Dose: 325 mg Folic Acid (Folate) 1 mg PO DAILY [facility] Stop: 06/13/19 08:59 Last Admin: 04/15/19 09:44 Dose: 1 mg Guaifenesin/Dextromethorphan (Robitussin Dm) 10 ml PO Q6HR PRN PRN Reason: Cough Stop: 06/12/19 19:17 Diltiazem HCl 125 mg/ Dextrose 125 mls @ 10 mls/hr IV TITR [facility]; Protocol Stop: 06/12/19 17:29 Last Titration: 04/14/19 00:40 Dose: 0 mg/hr, 0 mls/hr Lorazepam (Ativan) 1 mg IVP Q4HR PRN; Protocol PRN Reason: Agitation Stop: 06/12/19 15:32 Last Admin: 04/14/19 13:17 Dose: 1 mg Losartan Potassium (Cozaar) 50 mg PO DAILY [facility] Stop: 06/13/19 08:59 Last Admin: 04/15/19 09:37 Dose: Not Given Magnesium Hydroxide (Milk Of Magnesia) 30 ml PO HS PRN PRN Reason: Constipation Stop: 06/12/19 19:17 Montelukast Sodium (Singulair) 10 mg PO HS [facility] Stop: 06/12/19 20:59 Last Admin: 04/14/19 21:15 Dose: 10 mg Quetiapine Fumarate (Seroquel) 12.5 mg PO BID [facility]; Protocol Stop: 06/13/19 08:59 Last Admin: 04/15/19 09:44 Dose: 12.5 mg Physical Exam: 88 y/o female is weak. General: weak, alert HEENT: NC/AT, PERRLA Neck: Supple Lungs: CTAB Cardiovascular: RRR Abdomen: positive bowel sound Extremities: clear Neurological: alert - Procedures Procedures: Procedures Procedure Code Date APPENDECTOMY ADD-ON 24932 07/30/16 BYPASS DESCENDING COLON TO CUTANEOUS, OPEN APPROACH [id number] 07/30/16 CORRECT RECTAL PROLAPSE 67466 07/30/16 CORRECT RECTAL PROLAPSE 52305 07/30/16 EXCISION OF SIGMOID COLON, OPEN APPROACH [id number] 07/30/16 PARTIAL REMOVAL OF COLON 88045 07/30/16 REPOSITION RECTUM, OPEN APPROACH [id number] 07/30/16 RESECTION OF APPENDIX, OPEN APPROACH [id number] 07/30/16 RESPIRATORY VENTILATION, LESS THAN 24 CONSECUTIVE HOURS [id number] 07/30/16 Internal Medicine Assmt/Plan - Assessment Assessment: Hypertension. Dementia. Asthma. COPD. Dyslipidemia. PUD. GERD. Hematochezia. Melena. GI Bleed. Hyperlipidemia. Hypokalemia. - Plan Plan: Continuation of care. ID consult and GI consult requested. Monitor Vitals and Labs. Continue present meds as directed. Monitor Diet/Nutritional support. Monitor mental status progression. Monitor behavioral health status. Pain Management. Safety precaution. Supportive care. Fall precaution, frequent nursing rounds, and as needed restraints to prevent fall. Continue collaborating with consulting specialists, case management and nursing team. Will Monitor patient and continue current treatment plan as ordered. Nutritional Asmnt/Malnutr-PDOC - Dietary Evaluation Malnutrition Findings (Please click <Entered> for more info): Nutritional Asmnt/Malnutrition Start: 04/13/19 17: 00 Text: Status: Complete Freq: Protocol: Document 04/13/19 17:01 BLANQUITAG (Rec: 04/13/19 17:13 BLANQUITAG [id number]) Nutritional Asmnt/Malnutrition Patient General Information Nutritional Screening High Risk Diagnosis GI bleed Pertinent Medical Hx/Surgical Hx HTN, asthma/COPD, dyslipidemia , PUD/GERD, colostomy Subjective Information Pt seen lying in bed, awake and disoriented, Cantonese speaking. Per MARICEL Alva, pt does not like the food provided, consumed 10% of breakfast this morning. Pt has missing teeth noted. Current Diet Order/ Nutrition Support pureed BERTHA Pertinent Medications vit D3, colace, iron, folate Pertinent Labs 04/12 K 3.4, Glucose 120, TG 302 Nutritional Hx/Data Height 1.3 m Height (Calculated Centimeters) 129.5 Current Weight (lbs) 45.813 kg Weight (Calculated Kilograms) 45.8 Weight (Calculated Grams) 00669.8 [place] Body Weight 82 Body Mass Index (BMI) 27.3 Weight Status Overweight GI Symptoms GI Symptoms None Last BM 04/13 Difficult in: None Skin Integrity/Comment: intact Current %PO Negligible < 25% Estimated Nutritional Goals BEE in Kcals: Using Current wt Calories/Kcals/Kg 23-27 Kcals Calculated 9636-3590 Protein: Using Current wt Protein g/k Protein Calculated 46 Fluid: ml 1150-1380ml (25-30ml/kcal) Nutritional Problem 1. Problem Problem inadequate food intake Etiology possible poor appetite and food preference Signs/Symptoms: PO intake <20% Malnutrition Alert Is there a minimum of two criteria No selected? Query Text:Check all the applicable criteria. A minimum of two criteria are recommended for diagnosis of either severe or non-severe malnutrition. Malnutrition Related to Morbid Obesity Malnutrition related to morbid obesity No Intervention/Recommendation Comments 1. Continue with pureed BERTHA diet as ordered. Consider ground textured diet if pt tolerated. Add Ensure TID for extra kcal and protein. 2. Monitor PO intake, wt, labs and skin integrity 3. F/U as high risk in 2-3 days Expected Outcomes/Goals Expected Outcomes/Goals 1. PO intake to meet at least 75% of nutritional needs. 2. Wt stability, skin to remain intact, labs to approach WNL.
--- NOTE | 2019-04-15 15:01 | Cardiology ---
04/14/[address] Marvin Case. M-MODE ECHOCARDIOGRAM: Mitral valve, anterior leaflet of the mitral valve shows normal excursion, EF velocity. Posterior leaflet of the mitral valve shows normal excursion. Left ventricular posterior wall shows increased thickness, normal excursion. Interventricular septum shows increased thickness, normal excursion, hypertrophy of the left ventricle, ejection fraction 71%. Left atrium normal. Aortic root shows normal dimension, normal excursion of aortic leaflets. CONCLUSION: Hypertrophy of the left ventricle, ejection fraction 71%. 2D ECHO: Long axis view showed normal sized left ventricle with hypertrophy of the left ventricle. Left atrium normal. Aortic root shows normal dimension, normal excursion of aortic leaflets. Short axis view of the mitral valve normal. Short axis view of the aortic valve normal. Apical four chamber view showed normal sized left ventricle with hypertrophy of the left ventricle. Left atrium normal. Right ventricular cavity, right atrium normal, no pericardial effusion. CONCLUSION: Hypertrophy of the left ventricle, ejection fraction 71%. Doppler study shows moderate mitral regurgitation, moderate aortic regurgitation, moderate tricuspid regurgitation, moderate pulmonary regurgitation, right ventricular systolic pressure of 55 mmHg with moderate pulmonary hypertension. JOB# [id number]
--- NOTE | 2019-05-13 23:21 | Discharge Summary ---
DATE OF DISCHARGE: 04/15/2019 HOSPITAL COURSE: The patient admitted to [facility] on 04/12/2019. The patient was discharged to [facility] on 04/15/2019 and the patient was admitted because of increasing anemia, increasing hypertension, dementia, hyperlipidemia, hepatic encephalopathy and history of GI bleeding. The patient was admitted. ID doctor and GI consult was done. The patient improved. The patient is in stable condition. Her GI problems resolved. The patient was sent back to [facility] with a diagnosis status post GI bleed stable and now improved; history of chronic obstructive pulmonary disease, history of asthma, history of GERD, history of hyperlipidemia and I will be following the patient at [facility]. MEDICATIONS: See the reconciliation sheet. ACTIVITY AND DIET: See the order sheet. JOB# [id number]
== END 2019-04-15 13:45 | DRG 378 ==
LOC: ER 16:42 → ICU 23:15 → TELE 04-14 18:50
PROVIDERS: ADMIT Internal Medicine Infectious Disease; ATTEND Internal Medicine Infectious Disease
DX: K92.1 Melena (principal); I47.1 Supraventricular tachycardia; F03.91 Unspecified dementia, unspecified severity, with behavioral disturbance; K72.90 Hepatic failure, unspecified without coma; I10 Essential (primary) hypertension; J44.9 Chronic obstructive pulmonary disease, unspecified; D64.89 Other specified anemias; K27.9 Peptic ulcer, site unspecified, unspecified as acute or chronic, without hemorrhage or perforation; K21.9 Gastro-esophageal reflux disease without esophagitis; E78.5 Hyperlipidemia, unspecified; E87.6 Hypokalemia; M81.0 Age-related osteoporosis without current pathological fracture; F29 Unspecified psychosis not due to a substance or known physiological condition; R13.10 Dysphagia, unspecified; R31.9 Hematuria, unspecified; Z93.3 Colostomy status; Z90.49 Acquired absence of other specified parts of digestive tract
CPT/HCPCS: 36415-UA; 80048-TC; 80053-TC; 80061-TC; 81001-TC; 82150-TC; 82270-TC; 82550-TC; 83690-TC; 83880-TC; 84484-TC; 85014-TC; 85018-TC; 85025-TC; 85610-TC; 90779; 93005; 94640; 94760; 96374; C9113; J2060; J7030; Z7610